=== PATIENT | male | born 1945 | race Caucasian/White ===

== ENCOUNTER → 2018-02-23 | Outpatient (CLI) | payer MEDICARE, BC ==
--- NOTE | 2018-02-23 09:01 | XR ---
EXAMINATION TYPE: XR chest 2V DATE OF EXAM: 02/23/2018 COMPARISON: 02/03/2013 INDICATION: Prostate cancer TECHNIQUE: Frontal and lateral views of the chest are obtained. FINDINGS: The heart size is normal. The pulmonary vasculature is normal. The lungs are clear. Inspiration is more limited in the lateral projection. No suspicious sclerotic lesions are evident. No pulmonary nodules are evident. IMPRESSION: 1. No acute pulmonary process.
--- NOTE | 2018-02-23 12:25 | CT ---
EXAMINATION TYPE: CT abdomen pelvis w con DATE OF EXAM: 02/23/2018 COMPARISON: NONE HISTORY: Recent Diagnosis of Prostate CA CT DLP: 816.5 mGycm, Automated Exposure Control for Dose Reduction was Utilized. CONTRAST: CT scan of the abdomen and pelvis is performed with oral and with IV Contrast, patient injected with 100 mL of Isovue 300. FINDINGS: LUNG BASES: No significant abnormality is appreciated. LIVER/GB: No significant abnormality is appreciated. PANCREAS: No significant abnormality is seen. SPLEEN: Curvilinear calcification superior lateral aspect of spleen are identified. ADRENALS: No significant abnormality is seen. KIDNEYS: There is focal scarring along the posterior aspect of the upper pole right kidney. Inferior to this there is 8mm calcification noted coronal image 58 at area of less prominent scarring. There i s 9 mm simple appearing cyst near this level. There is symmetric cortical medullary uptake and excret ion from both kidneys without evidence of hydronephrosis bilaterally. Asymmetric diminished size to r ight kidney versus opposite left kidney is noted. BOWEL: Oral contrast reaches level of sigmoid colon. There is no suspicious small or large bowel dila tation. There are diverticula in the left and more prominent in the sigmoid colon. There is no CT gustavo dence for acute diverticulitis. PROSTATE/SEMINAL VESICLES: Prostate gland is not suspiciously enlarged. No suspicious adjacent lymph nodes are present. LYMPH NODES: No greater than 1cm abdominal or pelvic lymph nodes are appreciated. OSSEOUS STRUCTURES: There is multilevel mild to moderate spurring in the thoracolumbar spine. There i s facet arthropathy lower lumbar levels. There is moderate axial joint space loss in both hips. OTHER: There is moderate to severe atherosclerotic change of aorta extending into branch vessels. IMPRESSION: 1. No osseous or other metastatic disease. 2. Note is made of asymmetric right-sided renal scarring.
--- NOTE | 2018-02-23 14:10 | NM ---
EXAMINATION TYPE: NM bone scan whole body DATE OF EXAM: 02/23/2018 COMPARISON: NONE HISTORY: Prostate cancer Delayed whole-body scanning was performed following the injection of 25.2 mCi Tc 99m MDP. Images wer e acquired 5 hours post injection. FINDINGS: No suspicious focal hot nodules are evident. No photopenic defects are evident. There is some uptake noted at the left knee and to a minimal degree at the right knee. Uptake is also noted within the bilateral mid feet. These areas are more likely related to degenerative changes. Degenerative changes likely present at the bilateral first metacarpal phalangeal joint spaces of the hands greater on the left. Uptake is also noted at the bilateral shoulders and to a lesser degree the elbows. This appears to be degenerative in nature. Some mild uptake is in the posterior left mid cervical spine mid and lower cervical spine likely rela ronnell to degenerative change IMPRESSION: 1. Scattered areas were suspicious for degenerative changes. 2. Suspicious focal hot nodules to suggest metastasis is not identified.
== END | disposition home or self-care (01) ==
LOC: RADCTMAIN 08:14
PROVIDERS: ATTEND Urology
DX: C61 Malignant neoplasm of prostate (principal)
CPT/HCPCS: 82565; 84520; 71046; 74177; 36415; 78306; A9503; Q9967

== ENCOUNTER → 2018-04-07 | Outpatient (CLI) | payer MEDICARE, BC ==
--- NOTE | 2018-04-07 14:50 | ECHOF ---
Referral Reason:I48.91 atrial fibrillation MEASUREMENTS -------- HEIGHT: 167.6 cm WEIGHT: 78.5 kg BP: 185/88 RVIDd: 3.3 cm (< 3.3) IVSd: 0.9 cm (0.6 - 1.1) LVIDd: 4.2 cm (3.9 - 5.3) LVPWd: 1.0 cm (0.6 - 1.1) IVSs: 1.5 cm LVIDs: 2.3 cm LVPWs: 1.4 cm LAESV Index (A-L): 26.48 ml/m Ao Diam: 3.2 cm (2.0 - 3.7) AV Cusp: 1.4 cm (1.5 - 2.6) LA Diam: 3.8 cm (2.7 - 3.8) EPSS: 0.2 cm MV E Chase: 1.34 m/s MV DecT: 192 ms MV A Chase: 0.01 m/s MV E/A Ratio: 8120 RAP: 5.00 mmHg RVSP: 9.94 mmHg MV EF SLOPE: 69.14 mm/s (70 - 150) MV EXCURSION: 1.24 cm (> 18.000) FINDINGS -------- Atrial fibrillation. This was a technically adequate study. The left ventricular size is normal. Left ventricular wall thickness is normal. Overall left vent ricular systolic function is normal with, an EF between 55 - 60 %. The right ventricle is normal in size and function. Normal LA size by volume 22+/-6 ml/m2. The right atrium is normal in size. Aortic valve is trileaflet and is mildly thickened. There is mild aortic regurgitation. There is no evidence of aortic stenosis. The mitral valve leaflets are mildly thickened. Mild mitral regurgitation is present. Trace tricuspid regurgitation present. Right ventricular systolic pressure is normal at < 35 mmHg. There is no evidence of pulmonary hypertension. Trace/mild (physiologic) pulmonic regurgitation. The aortic root is mildy dilated up to 3.8 cm. Normal inferior vena cava with normal inspiratory collapse consistent with estimated right atrial pre ssure of 5 mmHg. There is no pericardial effusion. CONCLUSIONS -------- 1. Atrial fibrillation. 2. This was a technically adequate study. 3. The left ventricular size is normal. 4. Left ventricular wall thickness is normal. 5. Overall left ventricular systolic function is normal with, an EF between 55 - 60 %. 6. Normal LA size by volume 22+/-6 ml/m2. 7. Aortic valve is trileaflet and is mildly thickened. 8. There is mild aortic regurgitation. 9. The mitral valve leaflets are mildly thickened. 10. Mild mitral regurgitation is present. 11. Trace tricuspid regurgitation present. 12. Right ventricular systolic pressure is normal at < 35 mmHg. 13. There is no evidence of pulmonary hypertension. 14. Trace/mild (physiologic) pulmonic regurgitation. 15. The aortic root is mildy dilated up to 3.8 cm. 16. There is no pericardial effusion. FLOWER GROWER: Ken Shields RDCS
== END | disposition home or self-care (01) ==
LOC: RADECHMAIN 12:43
PROVIDERS: ATTEND Internal Medicine
DX: I48.91 Unspecified atrial fibrillation (principal)
CPT/HCPCS: 93306

== ENCOUNTER → 2019-07-04 | Outpatient (CLI) | payer MEDICARE, BC | LOC: LABWHC1 13:23 | PROVIDERS: ATTEND Urology | DX: C61 Malignant neoplasm of prostate (principal) | CPT/HCPCS: 36415; 84153 ==

== ENCOUNTER 2019-09-19 09:46 | Inpatient (IN) | payer MEDICARE, BC ==
--- NOTE | 2019-09-19 10:10 | ED ---
General Adult HPI - General Chief complaint: Neuro Symptoms/Deficit Stated complaint: double vision/speech concerns Time Seen by Provider: 09/19/19 09:55 Source: patient, family, RN notes reviewed Mode of arrival: ambulatory Limitations: no limitations - History of Present Illness Initial comments: Patient is a pleasant 74-year-old male presenting to the emergency department with dizziness. Onset of symptoms was 6:30 this morning, after he already awoke and was doing fine when he awoke. Patient was doing laundry when he noticed dizziness. Patient defines dizziness as a spinning type sensation. Patient states he also had some double vision. Patient states when he closed one of his eyes that double vision resolved however dizziness remain. Family did notice the patient did have some mild slurred speech, that has resolved. Double vision has also resolved. Patient remains just slightly dizzy at this time. No arm weakness or leg weakness. No loss of sensation. Patient does not feel confused. No history of similar symptoms previously. Patient was seen by Dr. Levi earlier this morning who did sent patient over. He states patient does have history of atrial fibrillation and has, only taken 15 mg of Xarelto not to 20 mg as recommended. - Related Data Allergies Allergy/AdvReac Type Severity Reaction Status Date / Time No Known Allergies Allergy Verified 09/19/19 09:53 Review of Systems ROS Statement: Those systems with pertinent positive or pertinent negative responses have been documented in the HPI. ROS Other: All systems not noted in ROS Statement are negative. Constitutional: Denies: fever Eyes: Reports: as per HPI ENT: Denies: ear pain Respiratory: Denies: cough Cardiovascular: Denies: chest pain Endocrine: Denies: fatigue Gastrointestinal: Denies: abdominal pain Genitourinary: Denies: dysuria Musculoskeletal: Denies: back pain Skin: Denies: rash Neurological: Reports: headache (Minimal right-sided headache), vertigo. Denies: weakness, confusion Past Medical History Past Medical History: Atrial Fibrillation, Cancer History of Any Multi-Drug Resistant Organisms: None Reported Past Surgical History: Prostate Surgery Additional Past Surgical History / Comment(s): prostate Past Psychological History: No Psychological Hx Reported Smoking Status: Never smoker Past Alcohol Use History: Occasional Past Drug Use History: None Reported General Exam Limitations: no limitations General appearance: alert, in no apparent distress Head exam: Present: normocephalic Eye exam: Present: normal appearance, PERRL, EOMI. Absent: nystagmus ENT exam: Present: normal oropharynx Neck exam: Present: normal inspection Respiratory exam: Present: normal lung sounds bilaterally Cardiovascular Exam: Present: regular rate, irregular rhythm GI/Abdominal exam: Present: soft. Absent: tenderness Extremities exam: Present: normal inspection, full ROM Neurological exam: Present: alert, oriented X3, CN II-XII intact. Absent: motor sensory deficit Expanded Neurological exam: Present: protecting the airway Patient oriented to: Present: person, place, time Speech: Present: fluid speech Cranial nerves: EOM's Intact: Normal, Facial Sensation: Normal Cerebellar function: Finger to Nose: Normal, Romberg: Normal Sensory exam: Upper Extremity Light Touch: Normal, Lower Extremity Light Touch: Normal Motor strength exam: RUE: 5, LUE: 5, RLE: 5, LLE: 5 Eye Response: (4) open spontaneously Motor Response: (6) obeys commands Verbal Response: (5) oriented Psychiatric exam: Present: normal affect, normal mood Skin exam: Present: normal color Course Vital Signs 09/19/19 09:49 Temperature 97.9 F Pulse Rate 60 Respiratory 19 Rate Blood Pressure 158/95 O2 Sat by Pulse 100 Oximetry - Reevaluation(s) Reevaluation #1: 09/19/19 10:35 Case was earlier discussed with neural interventional list, Dr. mak who agrees patient is not a TPA candidate and will review films. EKG Findings - EKG Comments: EKG Findings:: A. fib with rate of 62. QRS 94. QT 434. QTC 440. Left axis. LVH criteria. No acute ST change. Medical Decision Making - Medical Decision Making Patient reevaluated and updated. [facility] physician group has been paged for admission covering for Dr. Levi. - Lab Data Result diagrams: 09/19/19 10:11 09/19/19 10:11 Lab Results 09/19/19 09/19/19 09/19/19 Range/Units 10:10 10:11 10:11 WBC 4.8 (3.8-10.6) k/uL RBC 4.52 (4.30-5.90) m/uL Hgb 14.2 (13.0-17.5) gm/dL Hct 42.1 (39.0-53.0) % MCV 93.1 (80.0-100.0) fL MCH 31.5 (25.0-35.0) pg MCHC 33.8 (31.0-37.0) g/dL RDW 12.8 (11.5-15.5) % Plt Count 326 (150-450) k/uL Neutrophils % 76 % Lymphocytes % 11 % Monocytes % 6 % Eosinophils % 2 % Basophils % 1 % Neutrophils # 3.7 (1.3-7.7) k/uL Lymphocytes # 0.5 L (1.0-4.8) k/uL Monocytes # 0.3 (0-1.0) k/uL Eosinophils # 0.1 (0-0.7) k/uL Basophils # 0.1 (0-0.2) k/uL PT (9.0-12.0) sec INR (<1.2) APTT (22.0-30.0) sec Sodium 138 (137-145) mmol/L Potassium 4.5 (3.5-5.1) mmol/L Chloride 102 (98-107) mmol/L Carbon Dioxide 27 (22-30) mmol/L Anion Gap 9 mmol/L BUN 24 H (9-20) mg/dL Creatinine 1.06 (0.66-1.25) mg/dL Est GFR (CKD-EPI)AfAm 81 (>60 ml/min/1.73 sqM) Est GFR (CKD-EPI)NonAf 70 (>60 ml/min/1.73 sqM) Glucose 106 H (74-99) mg/dL POC Glucose (mg/dL) 102 H (75-99) mg/dL POC Glu Water Quality Control Engineer ID LassiterMauryTrisha Calcium 9.9 (8.4-10.2) mg/dL Total Bilirubin 0.6 (0.2-1.3) mg/dL AST 52 (17-59) U/L ALT 74 H (21-72) U/L Alkaline Phosphatase 99 (38-126) U/L Troponin I (0.000-0.034) ng/mL Total Protein 8.7 H (6.3-8.2) g/dL Albumin 4.7 (3.5-5.0) g/dL 09/19/19 09/19/19 Range/Units 10:11 10:11 WBC (3.8-10.6) k/uL RBC (4.30-5.90) m/uL Hgb (13.0-17.5) gm/dL Hct (39.0-53.0) % MCV (80.0-100.0) fL MCH (25.0-35.0) pg MCHC (31.0-37.0) g/dL RDW (11.5-15.5) % Plt Count (150-450) k/uL Neutrophils % % Lymphocytes % % Monocytes % % Eosinophils % % Basophils % % Neutrophils # (1.3-7.7) k/uL Lymphocytes # (1.0-4.8) k/uL Monocytes # (0-1.0) k/uL Eosinophils # (0-0.7) k/uL Basophils # (0-0.2) k/uL PT 11.7 (9.0-12.0) sec INR 1.1 (<1.2) APTT 36.9 H (22.0-30.0) sec Sodium (137-145) mmol/L Potassium (3.5-5.1) mmol/L Chloride (98-107) mmol/L Carbon Dioxide (22-30) mmol/L Anion Gap mmol/L BUN (9-20) mg/dL Creatinine (0.66-1.25) mg/dL Est GFR (CKD-EPI)AfAm (>60 ml/min/1.73 sqM) Est GFR (CKD-EPI)NonAf (>60 ml/min/1.73 sqM) Glucose (74-99) mg/dL POC Glucose (mg/dL) (75-99) mg/dL POC Glu Water Quality Control Engineer ID Calcium (8.4-10.2) mg/dL Total Bilirubin (0.2-1.3) mg/dL AST (17-59) U/L ALT (21-72) U/L Alkaline Phosphatase (38-126) U/L Troponin I <0.012 (0.000-0.034) ng/mL Total Protein (6.3-8.2) g/dL Albumin (3.5-5.0) g/dL - Radiology Data Radiology results: report reviewed (ET scan of the brain reveals atrophy and chronic changes, no acute process. CTA does not reveal acute abnormality.), image reviewed (Chest x-ray shows diminished inspiration that may be exaggerating mild cardiomegaly. No acute process.) Disposition Clinical Impression: Cerebrovascular accident (CVA) Disposition: ADMITTED IP TO THIS [facility] Condition: Serious Is patient prescribed a controlled substance at d/c from ED?: No Referrals: Tushar Levi MD [Primary Care Provider] - 1-2 days Decision Time: 11:15
[2019-09-19 10:12] LABS: Glucose,Whole Blood 102 mg/dL (75-99)
--- NOTE | 2019-09-19 10:29 | CT ---
EXAMINATION TYPE: CT brain wo con for TPA DATE OF EXAM: 09/19/2019 HISTORY: Dizziness, blurred vision. Acute onset neurologic deficit. CT DLP: 1036.8 mGycm. Automated Exposure Control for Dose Reduction was Utilized. TECHNIQUE: CT scan of the head is performed without contrast. COMPARISON: None. FINDINGS: There is no acute intracranial hemorrhage or midline shift identified. There is diffuse v entricular and sulcal prominence consistent with diffuse age-related cerebral atrophy. There is low- attenuation in the periventricular white matter consistent with chronic small vessel ischemic change. There is partial visualization of mucous retention cyst or polyp in the inferior left maxillary sinu s otherwise paranasal sinuses are clear. Globes are intact bilaterally. IMPRESSION: No acute intracranial hemorrhage or midline shift. There is mild to moderate diffuse ag e-related cerebral atrophy and mild chronic small vessel ischemic change noted.
[2019-09-19 10:35] LABS: Basophils # (A) 0.1 k/uL (0-0.2); Basophils % (A) 1 %; Eosinophils # (A) 0.1 k/uL (0-0.7); Eosinophils % (A) 2 %; HCT 42.1 % (39.0-53.0); HGB 14.2 gm/dL (13.0-17.5); Lymphocytes # (A) 0.5 k/uL (1.0-4.8); Lymphocytes % (A) 11 %; MCH 31.5 pg (25.0-35.0); MCHC 33.8 g/dL (31.0-37.0); MCV 93.1 fL (80.0-100.0); Monocytes # (A) 0.3 k/uL (0-1.0); Monocytes % (A) 6 %; Neutrophils # (A) 3.7 k/uL (1.3-7.7); Neutrophils % (A) 76 %; Platelet Count 326 k/uL (150-450); RBC 4.52 m/uL (4.30-5.90); RDW 12.8 % (11.5-15.5); WBC 4.8 k/uL (3.8-10.6)
[2019-09-19 10:44] LABS: Albumin 4.7 g/dL (3.5-5.0); Calcium 9.9 mg/dL (8.4-10.2); Potassium 4.5 mmol/L (3.5-5.1); Total Bilirubin 0.6 mg/dL (0.2-1.3); Total Protein 8.7 g/dL (6.3-8.2)
[2019-09-19] MEDS: SODIUM CHLORIDE 0.9% 1,000 ML IV STA ×3 (10:51→14:24)
[2019-09-19 10:54] LABS: INR 1.1 (<1.2); Partial Thromboplastin Time 36.9 sec (22.0-30.0); Prothrombin Time 11.7 sec (9.0-12.0)
--- NOTE | 2019-09-19 10:57 | XR ---
EXAMINATION TYPE: XR chest 2V DATE OF EXAM: 09/19/2019 COMPARISON: Chest x-ray February 23, 2018. HISTORY: Dizziness and weakness. TECHNIQUE: Frontal and lateral views of the chest are obtained. FINDINGS: There is old posterior right third rib fracture redemonstrated. Diminished inspiration on current study. Cardiac silhouette size is now mildly enlarged without cirrhotic and ectatic thoracic aorta. Multilevel spurring in the spine seen best on lateral view. Lungs are clear without pleural ef fusion or pneumothorax noted. IMPRESSION: Diminished inspiration may be exaggerating mild cardiomegaly. No new acute pulmonary pro cess is evident.
--- NOTE | 2019-09-19 11:00 | CT ---
EXAMINATION TYPE: CT angio head neck DATE OF EXAM: 09/19/2019 HISTORY: Neurologic deficits. COMPARISON: 09/19/19 CT DLP: 432.8 mGycm. Automated Exposure Control for Dose Reduction was Utilized. TECHNIQUE: CTA scan of the neck is performed with IV Contrast, patient injected with 65 mL of Isovue 370, axial images are obtained, coronal and sagittal reformatted images are reviewed. Three-D recons tructed images are created on an independent workstation and reviewed. FINDINGS: There is a conventional three-vessel branch pattern of the aortic arch. There is mild nonhemodynamically significant calcific and noncalcific atheromatous plaquing of the pr oximal external carotid artery and proximal left internal carotid artery beginning at the carotid bul b. This is less than 50% change in luminal diameter. The bilateral common carotid arteries, carotid b ulbs, and cervical portions of the internal carotid arteries are patent. The vertebral arteries have a normal anatomic origin and are patent bilaterally. The vertebral arteri es are codominant. Basilar artery is intact and unremarkable. Posterior and anterior circulation appear intact although posterior commuting arteries are not defini tely visualized. There is some slight narrowing of the cavernous portions of the bilateral internal c arotid arteries and supraclinoid portions likely on the basis of atheromatous change. No focal occlus ion or aneurysmal outpouching is seen. No dissection is seen. Visualized portions of the brain are discussed on the CT brain of the same date. 1.9 cm left maxillar y probable mucosal retention cyst is seen. Osseous structures are intact with degenerative change. IMPRESSION: 1. No large vessel focal occlusion, hemodynamically significant stenosis, aneurysmal outpouching or d issection is seen. 2. Given the neurologic deficits MRI could be performed for more accurate assessment of acute infarct .
[2019-09-19] MEDS ORDERED: ASPIRIN 325 MG TAB PO STA (11:19)
[2019-09-19] MEDS: SODIUM CHLORIDE 0.9% 1,000 ML IV SCH ×2 (14:39→20:09)
[2019-09-19] MEDS ORDERED: NALOXONE 0.4 MG/ML 1 ML VIAL IV PRN (16:44)
[2019-09-19] MEDS ORDERED: MELATONIN 3 MG TABLET PO PRN (16:44)
[2019-09-19] MEDS ORDERED: LABETALOL 5 MG/ML VIAL MDV IVP PRN (17:11)
--- NOTE | 2019-09-19 17:12 | P.CNNES ---
History of Present Illness Consult date: 09/19/19 Reason for Consult: Concern for stroke Chief complaint: Double vision and room-spinning sensation History of Present Illness: HISTORY OF PRESENT ILLNESS: Thank you for allowing me to evaluate Mr. Bruno Cardona. Mr. Cardona is a 74 year-old man with PMHx of atrial fibrillation, prostate cancer, and HTN, who presents to [facility] for an episode of double vision along with a room spinning sensation. Patient states that he woke around 5 in the morning, he got up and he made his coffee, and he turned on his dryer as he wanted to wear warm clothes. He tried to get clothes out from the dryer he started and he started having double vision along with a moving sensation. He continued to however, he was concerned that there may be a stroke. He called his son to let him know that he was unhappy taking a shower, and his the patient doesn't call him back in the next 20-30 minutes, son should calm to her he lives to make sure everything was okay. Patient was able to take a shower, and he cannot feeling a little bit better, but he was still having some symptoms, so he is son came over to bring him to the hospital. Patient denies ever having similar symptoms. He recently had a pretty bad cold, and he still coming down from it. He endorses ringing in his ears, but it's been an ongoing process for a long time. No pain in the ear. No headache, weakness, numbness or tingling, dysphagia, dysarthria, aphasia. Patient states that his vision is sometimes a little bit. After getting his hormone replacement therapy for his prostate cancer, but this followed up with difference. Diagnosis of atrial fibrillation happened during cardiac workup before his recent prostate surgery. PAST MEDICAL HISTORY: atrial fibrillation, prostate cancer PAST SURGICAL HISTORY: Prostate surgery HOME MEDICATIONS: Xarelto, Benazepril-HCTZ ALLERGIES: NKDA SOCIAL HISTORY: Never smoker. Social drinker. REVIEW OF SYSTEMS: The 14 systems are reviewed and no additional points are identified compared to the review of systems documented history and physical PHYSICAL EXAMINATION: VITAL SIGNS: T 97.4 HR 61 RR 20 BP 162/82 O2 sat 98% on RA GEN.: NAD, pleasant and cooperative HEENT: NCAT, sclera without icterus NECK: Supple, no carotid bruit SKIN AND EXTREMITIES: Warm to touch, no edema NEURO: MENTAL STATUS: Patient alert and oriented to self, place, time. Able to name the current president. Speech fluent, able to name and repeat, following all commands readily. No right and left disorientation, extinction to double simultaneous stimulation, finger agnosia, neglect. CRANIAL NERVES II THROUGH XII: II: Pupils are equal and reactive to light symmetrically. No afferent pupillary defect. Visual humphries are intact. III, IV, : No ptosis. Extraocular movements full. No nystagmus. V: Facial sensation intact from V1-3. VII. No clear facial asymmetry. VIII: Hearing intact to finger rub bilaterally. IX, X: Symmetric palate elevation. XI: Shoulder shrug intact. XII: Tongue midline without fasciculation or atrophy. MOTOR: Normal bulk/tone. No pronator drift or tremor. Strength is 5/5 throughout all 4 extremities. SENSORY: Intact to light touch, temperature, pinprick in all 4 extremities. Romberg is negative. REFLEXES: 2+ throughout. Toes are downgoing. COORDINATION: Finger to nose intact. No dysmetria. GAIT: Narrow-based and stable. Able to toe/heel walk. Some difficulty with tandem walking DIAGNOSTIC TESTING: LABORATORY: WBC 4.8 hemoglobin 14.2 platelets 326 PT 11.7 INR 1.1 sodium 138 potassium 4.5 chloride 102 bicarb 27 BUN 2421.06 glucose 106 AST 52 ALT 74 alk phos 99 tropo laura <0.012 IMAGING: CT head without contrast 09/19/2019: No acute intracranial hemorrhage or midline shift. There is mild to moderate diffuse age-related cerebral atrophy and mild chronic small vessel ischemic change noted. CTA head and neck with contrast 09/19/2019: No large vessel focal occlusion, hemodynamically significant stenosis, aneurysmal outpouchings or dissection seen. There is mild nonhemodynamically significant calcific and calcific atheromatous plaquing of the proximal external carotid artery and proximal left ica beginning at the carotid bulb. this is less than 50% change in luminal diameter. ASSESSMENT: 74 year-old man with PMHx of atrial fibrillation, prostate cancer, and HTN, who presents to [facility] for an episode of double vision along with a room spinning sensation. There is a concern for posterior circulation stroke this patient also with history of atrial fibrillation and prostate cancer: Patient has been on anticoagulation. RECOMMENDATIONS: 1. MRI brain without contrast 2. Transthoracic echocardiogram obtained. Awaiting final result 3. Cardiac monitoring 4. Permissive HTN for 24-48 hours SBP >220. Give labetalol 10mg IV q1h PRN for SBP >220 DBP >110 5. Continue with Xarelto 6. Atorvastatin 80mg qhs 7. Labs: A1C, TSH, FLP 8. Discussed with patient about stroke prevention guidelines. Medication compliance, hypertension/diabetes control, lifestyle changes including no smoking, drinking in moderation, losing weight, exercising, eating healthier 9. Neurology will continue to follow 10. Patient needs to follow up with neurologist as outpatient with her 1-2 weeks of discharge Past Medical History Past Medical History: Atrial Fibrillation, Cancer, Eye Disorder, Hypertension, Osteoarthritis (OA) Additional Past Medical History / Comment(s): Prostate cancer with surgery/radiation/immunotherapy, pt believes he has incomplete emptying of his bladder, chronic low back pain, arthritis multiple joints, diverticular disease, closed angle glaucoma bilaterally, seasonal allergies, recent "cold". 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 Past Anesthesia/Blood Transfusion Reactions: Postoperative Nausea & Vomiting (PONV) Smoking Status: Former smoker - Past Family History Father Family Medical History: Hypertension, Liver Disease Additional Family Medical History / Comment(s): Father had heart "issues" Mother Family Medical History: Congestive Heart Failure (CHF), Diabetes Mellitus, Hypertension Additional Family Medical History / Comment(s): Enlarged heart. Medications and Allergies Home Medications Medication Instructions Recorded Confirmed Type Benazepril/Hydrochlorothiazide 1 tab PO DAILY@0700 09/19/19 09/19/19 History [Benazepril-Hctz 20-12.5 mg Tab] Rivaroxaban [Xarelto] 15 mg PO DAILY@0700 09/19/19 09/19/19 History Allergies Allergy/AdvReac Type Severity Reaction Status Date / Time No Known Allergies Allergy Verified 09/19/19 12:11 Physical Examination - Vital Signs Vital Signs: Vital Signs Temp Pulse Pulse Resp BP BP Pulse Ox 09/19/19 13:20 97.4 F L 61 20 162/82 98 09/19/19 12:30 56 L 22 154/84 99 11/05/19 12:00 64 17 134/84 99 09/19/19 11:30 65 19 143/83 09/19/19 10:30 64 24 143/78 98 09/19/19 09:49 97.9 F 60 19 158/95 100 Intake and Output 09/19/19 09/19/19 09/19/19 06:59 14:59 22:59 Other: Weight 83.007 kg Results - Laboratory Findings CBC and BMP: 09/19/19 10:11 09/19/19 10:11 Abnormal Lab Findings: Abnormal Labs 09/19/19 09/19/19 09/19/19 10:10 10:11 10:11 Lymphocytes # 0.5 L APTT BUN 24 H Glucose 106 H POC Glucose (mg/dL) 102 H ALT 74 H Total Protein 8.7 H 09/19/19 10:11 Lymphocytes # APTT 36.9 H BUN Glucose POC Glucose (mg/dL) ALT Total Protein
--- NOTE | 2019-09-19 17:15 | P.HPIM ---
History of Present Illness H&P Date: 09/19/19 Chief Complaint: Double/blurred vision and slurred speech since this AM. This 74-year-old male with past medical history significant for atrial fibrillation on Xeralto (sub-therapeutic dose per patient's choice), hypertension, prostate cancer on hormonal treatment and chronic blurred vision who resented to the emergency department this morning with the above complaint. Patient reported by the time he came to the emergency room his diplopia has resolved and his slurred his speech was also almost gone. Patient stated that he has not seen the lockstitch waistband setter for 4 years and is not wearing his glasses. Patient reports that his double vision comes and goes and it comes it lasts for 5-10 minutes and then it resolves. Patient covers one eye and his double vision resolves. Patient was slightly dizzy with feeling of room spinning earlier in the morning but that has also been resolved by the time he arrived in the emergency department. With these complaints patient went to see Dr. Levi, his PCP, who again recommended to use full therapeutic dose of Xeralto and new prescription was sent to his pharmacy but because of the symptoms patient was sent directly to the emergency room for further evaluation and management. Patient has extensive evaluation in the emergency department and CAT scan of the head revealed atrophy and chronic changes, no acute process. CT angiogram does not reveal acute abnormality. Chest x-ray was done which showed diminished inspirations and possible mild cardiomegaly, no acute process. Code stroke was initiated in the emergency room and per neurology recommendation patient was admitted for further management. Patient denies chest pain, palpitation, headaches, dizziness now, diaphoresis, fever, chills, cough, phlegm production, and nausea, vomiting and denies rest of the review system. Review of Systems 12 point review of system was essentially negative other than one mentioned in HPI. Past Medical History Past Medical History: Atrial Fibrillation, Cancer, Eye Disorder, Hypertension, Osteoarthritis (OA) Additional Past Medical History / Comment(s): Prostate cancer with surgery/radiation/immunotherapy, pt believes he has incomplete emptying of his bladder, chronic low back pain, arthritis multiple joints, diverticular disease, closed angle glaucoma bilaterally, seasonal allergies, recent "cold". 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 Past Anesthesia/Blood Transfusion Reactions: Postoperative Nausea & Vomiting (PONV) Smoking Status: Former smoker - Past Family History Father Family Medical History: Hypertension, Liver Disease Additional Family Medical History / Comment(s): Father had heart "issues" Mother Family Medical History: Congestive Heart Failure (CHF), Diabetes Mellitus, Hypertension Additional Family Medical History / Comment(s): Enlarged heart. Medications and Allergies Home Medications Medication Instructions Recorded Confirmed Type Benazepril/Hydrochlorothiazide 1 tab PO DAILY@0700 09/19/19 09/19/19 History [Benazepril-Hctz 20-12.5 mg Tab] Rivaroxaban [Xarelto] 15 mg PO DAILY@0700 09/19/19 09/19/19 History Allergies Allergy/AdvReac Type Severity Reaction Status Date / Time No Known Allergies Allergy Verified 09/19/19 12:11 Physical Exam Vitals: Vital Signs Temp Pulse Pulse Resp BP BP Pulse Ox 09/19/19 13:20 97.4 F L 61 20 162/82 98 09/19/19 12:30 56 L 22 154/84 99 09/19/19 12:00 64 17 134/84 99 09/19/19 11:30 65 19 143/83 09/19/19 10:30 64 24 143/78 98 09/19/19 09:49 97.9 F 60 19 158/95 100 Intake and Output 09/19/19 09/19/19 09/19/19 06:59 14:59 22:59 Other: Weight 83.007 kg - Constitutional General appearance: cooperative, no acute distress - EENT Eyes: EOMI, normal appearance ENT: hearing grossly normal, NA/AT - Neck Neck: no lymphadenopathy, normal ROM, no rigidity, no stridor, no thyromegaly - Respiratory Respiratory: bilateral: CTA, negative: dullness, rales, rhonchi, wheezing - Cardiovascular Rhythm: irregularly irregular Heart sounds: abnormal: S1 (Variable.), S2 (Variable.) Abnormal Heart Sounds: no systolic murmur, no diastolic murmur, no S3 Gallop, no S4 Gallop - Gastrointestinal General gastrointestinal: no distended, normal bowel sounds, no rigid, soft, no tenderness - Integumentary Integumentary: normal - Neurologic Neurologic: CNII-XII intact (No focal neuro deficits noted.) - Psychiatric Psychiatric: A&O x's 3, appropriate affect, intact judgment & insight Results CBC & Chem 7: 09/19/19 10:11 09/19/19 10:11 Labs: Abnormal Lab Results - Last 24 Hours (Table) 09/19/19 09/19/19 09/19/19 Range/Units 10:10 10:11 10:11 Lymphocytes # 0.5 L (1.0-4.8) k/uL APTT (22.0-30.0) sec BUN 24 H (9-20) mg/dL Glucose 106 H (74-99) mg/dL POC Glucose (mg/dL) 102 H (75-99) mg/dL ALT 74 H (21-72) U/L Total Protein 8.7 H (6.3-8.2) g/dL 09/19/19 Range/Units 10:11 Lymphocytes # (1.0-4.8) k/uL APTT 36.9 H (22.0-30.0) sec BUN (9-20) mg/dL Glucose (74-99) mg/dL POC Glucose (mg/dL) (75-99) mg/dL ALT (21-72) U/L Total Protein (6.3-8.2) g/dL Chest x-ray: report reviewed CT Scan - head: report reviewed Thrombosis Risk Factor Assmnt - DVT/VTE Prophylaxis DVT/VTE Prophylaxis: Contraindicated - See note (Patient on appropriate oral anticoagulation for atrial fibrillation.) - Choose All That Apply Any of the Below Risk Factors Present?: Yes Each Factor Represents 1 point: Obesity (BMI >25) Other Risk Factors: Yes Each Risk Factor Represents 2 Points: Age 61-74 years, Malignancy Other congenital or acquired thrombophilia - If yes, enter type in comment: No Thrombosis Risk Factor Assessment Total Risk Factor Score: 5 Thrombosis Risk Factor Assessment Level: High Risk Assessment and Plan (1) TIA (transient ischemic attack) Current Visit: Yes Status: Acute Priority: High Code(s): G45.9 - TRANSIENT CEREBRAL ISCHEMIC ATTACK, UNSPECIFIED SNOMED Code(s): 684431152 (2) Binocular vision disorder with diplopia Current Visit: Yes Status: Acute Priority: High Code(s): H53.2 - DIPLOPIA SNOMED Code(s): 58790408 (3) Blurred vision, bilateral Current Visit: Yes Status: Acute Priority: High Code(s): H53.8 - OTHER VISUAL DISTURBANCES SNOMED Code(s): 545540345 (4) Hypertension, essential, benign Current Visit: Yes Status: Chronic Priority: High Code(s): I10 - ESSENTIAL (PRIMARY) HYPERTENSION SNOMED Code(s): 5991769 (5) Atrial fibrillation Current Visit: Yes Status: Chronic Priority: Medium Code(s): I48.91 - UNSPECIFIED ATRIAL FIBRILLATION SNOMED Code(s): 98093145 (6) Prostate cancer Current Visit: Yes Status: Chronic Priority: Medium Code(s): C61 - MALIGNANT NEOPLASM OF PROSTATE SNOMED Code(s): 050821058 Plan: Patient was admitted to telemetry unit, neurology consult was obtained and Dr. Patricia's input appreciated. Patient was counseled regarding increasing the dose of Xeralto to 20MG daily and it took a lot of time to educate him about the pros of this medication which further outweighs the side effects. Patient finally agreed to take 20 mg from tomorrow morning. Patient's dizziness and slurred speech completely resolved but his double vision comes and goes but it comes is last 457 minutes maybe 10 minutes at most and then it resolves. Patient also stated that he has not seen lockstitch waistband setter for about 4 years and does not have glasses and his vision is very poor and blurry. Patient also reported that he does not sleep well because of his prostate issues and at times he is sleepy during the daytime and takes naps. Patient lives alone in his apartment. MRI will be done according to the recommendation of Dr. Patricia. Patient will be referred to ophthalmology evaluation and Dr. Tolliver was consulted for his double vision. This could be due to his lack of sleep during the nighttime and he is sleepy and weak tired during the daytime causing him to have intermittent double vision but will have him evaluated by ophthalmology either inpatient or as an outpatient so that patient can start getting his ophthalmologic care. Patient home medication were reviewed and will will be continued with the adjustment of Xeralto dose. Patient was requesting to be discharged and had MRI done on as an outpatient basis and Dr. Patricia recommended for discharging patient today, but b ecause of his recurrent and reoccurring double vision and blurred vision it was counseled to stay in the hospital and have an MRI done as an inpatient and that he may be evaluated by the lockstitch waistband setter while inpatient and patient agreed to stay. Total time spent was more than 45 minutes and more than 50% of which was in counseling the patient regarding appropriate medication management of his me dical condition and evaluation and management of his acute condition as an inpatient status. Time with Patient: Greater than 30 (Total time spent was 45 minutes, counseled/educated to comply with physicians recommendation.)
[2019-09-19] MEDS: ATORVASTATIN 80 MG TAB PO SCH (21:58)
[2019-09-20] MEDS: SODIUM CHLORIDE 0.9% 1,000 ML IV SCH (06:47)
[2019-09-20] MEDS ORDERED: HYDROCHLOROTHIAZIDE 12.5 MG CAP PO SCH (07:00)
[2019-09-20] MEDS ORDERED: LISINOPRIL 20 MG TAB PO SCH (07:00)
[2019-09-20] MEDS ORDERED: RIVAROXABAN 15 MG TAB PO SCH (07:00)
[2019-09-20 07:39] LABS: Calcium 9.7 mg/dL (8.4-10.2); Potassium 4.6 mmol/L (3.5-5.1)
[2019-09-20] MEDS ORDERED: ASPIRIN 325 MG TAB PO SCH (09:00)
--- NOTE | 2019-09-20 11:41 | CONS ---
CONSULTATION CHIEF COMPLAINT: Double vision and vertigo. This is a 74-year-old gentleman with history of chronic persistent atrial fibrillation, who presented to the hospital with symptoms of double vision and spinning in the room. He got up in the morning and started using his washer and dryer and started noticing the double vision and the spinning sensation in the room.. This went on for a while, went and saw his primary care physician in the office. Due to persistent symptoms, he is admitted to the hospital. I have been consulted because of his persistent atrial fibrillation. The patient was on Xarelto 15 mg daily and I advised the patient to increase the dose to 20 mg for optimal therapy. Patient denies chest pain, difficulty in breathing, sustained palpitations or syncope. PAST SURGICAL HISTORY: Significant for prostate surgery. Significant for atrial fibrillation, medication and hypertension. MEDICATIONS: Include Xarelto and benazepril. ALLERGIES: No known drug allergies. FAMILY HISTORY: Negative for premature coronary artery disease. SOCIAL HISTORY: Negative for smoking, EtOH abuse, or drug abuse. REVIEW OF SYSTEMS: HEENT: As described above. CARDIAC: Negative. RESPIRATORY: Negative. GI: Negative. : Negative. SKIN: Negative. MUSCULOSKELETAL: Significant for arthritis. PSYCHOSOCIAL: Negative. ENDOCRINE: Negatlive. DERM: Negative. CONSTITUTIONAL: Negative. ONCOLOGICAL: Negative ADVANCED MANUFACTURING ENGINEER: As described above. Rest of the system review is not relevant. PHYSICAL EXAM: Patient is afebrile. Heart rate is 50 beats per minute. Blood pressure is 120/60, respiratory rate is 18%, O2 sat is 97% on room air. There is no jugular venous distention. Carotid upstroke is diminished. There is no bruit. Chest exam reveals good air entry bilaterally. Heart exam reveals first and second heart sounds. No gallop. No murmur. No rub. Abdomen is soft. No gallop. Has irregular rhythm. No murmur. Abdomen is soft, nontender. Exam of extremities did not reveal any edema. 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 LAB: 1. Show potassium of 4.6 creatinine is 1.1. LDL cholesterol is 199 with a TSH of 2.2. Total cholesterol is 280, AST is 52, ALT is 74. Hemoglobin is 14.2. ASSESSMENT: 1. Persistent atrial fibrillation with controlled ventricular rate. 2. Double vision and vertigo. 3. Rule out CVA in the posterior circulation. 4. Dyslipidemia. PLAN: I will obtain a 2D echo on him to evaluate his LV function. Increase the dose of Xarelto to 20 mg daily. Continue with optimal blood pressure control. Patient needs to be started on statins given the is severely elevated LDL cholesterol. Thank you for giving me the privilege to participate with this pleasant gentleman. BRANDI / ANELN: [id number] /
--- NOTE | 2019-09-20 13:31 | ECHOF ---
Referral Reason:Thrombus MEASUREMENTS -------- HEIGHT: 167.6 cm WEIGHT: 83.0 kg BP: 158/95 RVIDd: 4.2 cm (< 3.3) IVSd: 1.3 cm (0.6 - 1.1) LVIDd: 4.3 cm (3.9 - 5.3) LVPWd: 1.2 cm (0.6 - 1.1) IVSs: 2.2 cm LVIDs: 1.5 cm LVPWs: 1.8 cm LAESV Index (A-L): 43.23 ml/m Ao Diam: 2.7 cm (2.0 - 3.7) AV Cusp: 2.0 cm (1.5 - 2.6) LA Diam: 4.6 cm (2.7 - 3.8) MV EXCURSION: 14.414 mm (> 18.000) MV EF SLOPE: 56 mm/s (70 - 150) EPSS: 0.2 cm AR PHT: 334 ms RAP: 5.00 mmHg RVSP: 24.55 mmHg FINDINGS -------- Atrial fibrillation. This was a technically adequate study. The left ventricular size is normal. There is mild concentric left ventricular hypertrophy. Overa ll left ventricular systolic function is normal with, an EF between 55 - 60 %. Left ventricular [place] pressure cannot be estimated due to Atrial fibrillation. The right ventricle is severely enlarged. LA is severely dilated >40 ml/m2 The right atrium is mildly enlarged. Interatrial and interventricular septum intact. The aortic valve is trileaflet and appears structurally normal. There is mild aortic valve sclerosi s. Trace to mild aortic regurgitation. Mild mitral annular calcification present. [id number] mitral regurgitation is present. Mild tricuspid regurgitation present. There is no evidence of pulmonary hypertension. The right v entricular systolic pressure, as measured by Doppler, is 24.55mmHg. Trace/mild (physiologic) pulmonic regurgitation. The aortic root size is normal. Normal inferior vena cava with normal inspiratory collapse consistent with estimated right atrial pre ssure of 5 mmHg. There is no pericardial effusion. CONCLUSIONS -------- 1. Atrial fibrillation. 2. This was a technically adequate study. 3. The left ventricular size is normal. 4. There is mild concentric left ventricular hypertrophy. 5. Overall left ventricular systolic function is normal with, an EF between 55 - 60 %. 6. Left ventricular fillimg pressure cannot be estimated due to Atrial fibrillation. 7. The right ventricle is severely enlarged. 8. LA is severely dilated >40 ml/m2 9. The right atrium is mildly enlarged. 10. Interatrial and interventricular septum intact. 11. The aortic valve is trileaflet and appears structurally normal. 12. There is mild aortic valve sclerosis. 13. Trace to mild aortic regurgitation. 14. Mild mitral annular calcification present. 15. [id number] mitral regurgitation is present. 16. Mild tricuspid regurgitation present. 17. There is no evidence of pulmonary hypertension. 18. The right ventricular systolic pressure, as measured by Doppler, is 24.55mmHg. 19. Trace/mild (physiologic) pulmonic regurgitation. 20. The aortic root size is normal. 21. Normal inferior vena cava with normal inspiratory collapse consistent with estimated right atrial pressure of 5 mmHg. 22. There is no pericardial effusion. ELECTRONIC COMMUNICATIONS TECHNICIAN: Maya Thompson RDCS
--- NOTE | 2019-09-20 14:04 | MR ---
EXAMINATION TYPE: MR brain wo con DATE OF EXAM: 09/20/2019 1:55 PM COMPARISON: NONE HISTORY: CVA FINDINGS: The ventricles, basal cisterns and sulci overlying the cerebral convexities are mildly enlarged. There is evidence of mild periventricular white matter ischemic demyelination. Remote deep white matter insults are also noted. Small focus of increased signal on the diffusion-weighted data sets within the right brachium pontis and periphery of the right cerebellum felt to reflect acute vascular insult. There is no evidence for midline shift or mass effect. Acute intracranial hemorrhage or extra-axial collection is not evident. The paranasal sinuses and mastoid air cells are well-aerated. IMPRESSION: Small focus of increased signal on the diffusion-weighted data sets within the right brachium pontis and periphery of the right cerebellum felt to reflect acute vascular insult.
[2019-09-20 14:06] LABS: Hemoglobin A1C 5.6 % (4.0-6.0)
[2019-09-20 15:37] VITALS: TEMP 97.7
[2019-09-20 15:39] VITALS: PULSE 60
[2019-09-20 17:39] VITALS: BP 121/81
[2019-09-20 18:12] VITALS: RESP 15
--- NOTE | 2019-09-20 18:25 | P.DS ---
Providers Date of admission: 09/19/19 11:19 Expected date of discharge: 09/20/19 Attending physician: Maggy Clemons, Consults: 09/19/19 11:19 Consult Physician Urgent Consulting Provider: Love Patricia Consult Reason/Comments: evaluate for cva Do you want consulting provider notified?: Yes 09/19/19 16:48 Consult Physician Routine Consulting Provider: Miguel Tolliver Consult Reason/Comments: Diplopia (intermittant) and blurred vision, not seen ophthal. for 4 years Do you want consulting provider notified?: Yes Primary care physician: Tushar Levi - Discharge Diagnosis(es) (1) Cerebellar stroke, acute Diagnosed on MRI, with "right Brachium Pontis and right Cerebellar acute vascular insult". Current Visit: Yes Status: Acute Priority: High (2) Binocular vision disorder with diplopia Current Visit: Yes Status: Acute Priority: High (3) Blurred vision, bilateral Current Visit: Yes Status: Acute Priority: High (4) Hypertension, essential, benign Current Visit: Yes Status: Chronic Priority: High (5) Atrial fibrillation Current Visit: Yes Status: Chronic Priority: Medium (6) Prostate cancer Current Visit: Yes Status: Chronic Priority: Medium Hospital Course: This 74-year-old male with past medical history significant for atrial fibrillation on Xeralto (sub-therapeutic dose per patient's choice), hypertension, prostate cancer on hormonal treatment and chronic blurred vision who resented to the emergency department this morning with Double/blurred vision and slurred speech since the morning of admission. Patient reported by the time he came to the emergency room his diplopia has resolved and his slurred his speech was also almost gone. Patient stated that he has not seen the dealmaker for 4 years and is not wearing his glasses. Patient reports that his double vision comes and goes and it comes it lasts for 5-10 minutes and then it resolves. Patient covers one eye and his double vision resolves. Patient was slightly dizzy with feeling of room spinning earlier in the morning but that has also been resolved by the time he arrived in the emergency department. With these complaints patient went to see Dr. Levi, his PCP, who again recommended to use full therapeutic dose of Xeralto and new prescription was sent to his pharmacy but because of the symptoms patient was sent directly to the emergency room for further evaluation and management. Patient has extensive evaluation in the emergency department and CAT scan of the head revealed atrophy and chronic changes, no acute process. CT-Angiogram does not reveal acute abnormality. Chest x-ray was done which showed diminished inspirations and possible mild cardiomegaly, no acute process. Patient was admitted to telemetry unit, neurology consult was obtained and Dr. Patricia's input appreciated. Patient was counseled regarding increasing the dose of Xeralto to 20MG daily and it took a lot of time to educate him about the pros of this medication which further outweighs the side effects. Patient finally agreed to take 20 mg from tomorrow morning. Patient's dizziness and slurred speech completely resolved but his double vision comes and goes but it comes is last few minutes, maybe 10 minutes at most and then it resolves. Patient also stated that he has not seen dealmaker for about 4 years and does not have glasses and his vision is very poor and blurry. Patient also reported that he does not sleep well because of his prostate issues and at times he is sleepy during the daytime and takes naps. Patient lives alone in his apartment. MRI will be done according to the recommendation of Dr. Patricia. Patient will be referred to ophthalmology evaluation and Dr. Tolliver was consulted for his double vision. This could be due to his lack of sleep during the nighttime and he is sleepy and weak tired during the daytime causing him to have intermittent double vision but will have him evaluated by ophthalmology either inpatient or as an outpatient so that patient can start getting his ophthalmologic care. Patient home medication were reviewed and will will be continued with the adjustment of Xeralto dose. Patient was requesting to be discharged and had MRI done on as an outpatient basis and Dr. Patricia recommended for discharging patient today, but because of his recurrent and reoccurring double vision and blurred vision it was counseled to stay in the hospital and have an MRI done as an inpatient and that he may be evaluated by the dealmaker while inpatient and patient agreed to stay. Today pt's vitals are stable and he is afebrile, his lungs are clear and heart irregularly irregular with variable heart sounds, no gross neuro deficits noted on exam. Pt's MRI Brain reported today as acute stroke and per Dr. Patricia pt. is ok for discharge home on current medication. Pt. was also seen by Dr. Tolliver today and recs for resuming glaucoma medication and will f/u in his office for further testing for diplopia and then pt. can go see his sister's Ophthalmoligist. Pt. agreed and he will be discharged home today with close f/u with Dr. Levi, Dr. Patricia and Dr. Tolliver. Assessment: As above. Health Concerns: Low salt and Low Cholesterol diet. Pertinent Studies: CT-Brain, CT-Angiogram, 2-D Echocardiogram, MRI Brain. Procedures: None. Patient Condition at Discharge: Fair Plan - Discharge Summary Discharge Rx Participant: No New Discharge Prescriptions: New Atorvastatin [Lipitor] 80 mg PO HS 30 Days #30 tab Melatonin 3 mg PO HS PRN 30 Days #30 tablet PRN Reason: Insomnia Rivaroxaban [Xarelto] 20 mg PO DAILY 30 Days #30 tab Aspirin 81 mg PO DAILY 30 Days #30 chewable Continue Benazepril/Hydrochlorothiazide [Benazepril-Hctz 20-12.5 mg Tab] 1 tab PO DAILY@0700 Discontinued Rivaroxaban [Xarelto] 15 mg PO DAILY@0700 Discharge Medication List Benazepril/Hydrochlorothiazide [Benazepril-Hctz 20-12.5 mg Tab] 1 tab PO DAILY@0700 09/19/19 [History] Aspirin 81 mg PO DAILY 30 Days #30 chewable 09/20/19 [Rx] Atorvastatin [Lipitor] 80 mg PO HS 30 Days #30 tab 09/20/19 [Rx] Melatonin 3 mg PO HS PRN 30 Days #30 tablet 09/20/19 [Rx] Rivaroxaban [Xarelto] 20 mg PO DAILY 30 Days #30 tab 09/20/19 [Rx] Follow up Appointment(s)/Referral(s): Patrick Canchola [Other] - 3 Weeks (Dr Zuluaga Office is closed. Please call to schedule appointment. Schedule it for after your appointment with Dr. Tolliver ) Tushar Levi MD [Primary Care Provider] - 09/25/19 8:45 am (Wednesday) Miguel Tolliver MD [STAFF PHYSICIAN] - 1 Week (please call office) Narendra Guillaume DO [STAFF PHYSICIAN] - 1 Week (Office is closed. Please call to schedule appointment) Patient Instructions/Handouts: Coronary Artery Disease (DC), A-fib (Atrial Fibrillation) (DC), Glaucoma (DC), Ischemic Stroke (DC)
[2019-09-20] MEDS: ATORVASTATIN 80 MG TAB PO SCH (18:48)
--- NOTE | 2019-09-20 19:21 | P.PN ---
Progress Note - Text Progress Note Date: 09/20/19 SUBJECTIVE/INTERVAL EVENTS: No acute overnight events. Patient denies any new symptoms. Denies dizziness, weakness, numbness or tingling. PHYSICAL EXAMINATION: VITAL SIGNS: T 97.6 HR 51 RR 16 BP 121/60 O2 sat 97% on RA GEN.: NAD, pleasant and cooperative HEENT: NCAT, sclera without icterus NECK: Supple, no carotid bruit SKIN AND EXTREMITIES: Warm to touch, no edema NEURO: MENTAL STATUS: Patient alert and oriented to self, place, time. Able to name the current president. Speech fluent, able to name and repeat, following all commands readily. No right and left disorientation, extinction to double simultaneous stimulation, finger agnosia, neglect. CRANIAL NERVES II THROUGH XII: II: Pupils are equal and reactive to light symmetrically. No afferent pupillary defect. Visual humphries are intact. III, IV, : No ptosis. Extraocular movements full. No nystagmus. V: Facial sensation intact from V1-3. VII. No clear facial asymmetry. VIII: Hearing intact to finger rub bilaterally. IX, X: Symmetric palate elevation. XI: Shoulder shrug intact. XII: Tongue midline without fasciculation or atrophy. MOTOR: Normal bulk/tone. No pronator drift or tremor. Strength is 5/5 throughout all 4 extremities. SENSORY: Intact to light touch, temperature, pinprick in all 4 extremities. Romberg is negative. REFLEXES: 2+ throughout. Toes are downgoing. COORDINATION: Finger to nose intact. No dysmetria. GAIT: Narrow-based and stable. Able to toe/heel walk. Some difficulty with tandem walking DIAGNOSTIC TESTING: LABORATORY: WBC 4.8 hemoglobin 14.2 platelets 326 PT 11.7 INR 1.1 sodium 138 potassium 4.5 chloride 102 bicarb 27 BUN 2421.06 glucose 106 AST 52 ALT 74 alk phos 99 troponin <0.012 Total cholesterol 282 LDL 199 HDL 42 triglycerides 204 TSH 2.20 A1C 5.6 IMAGING: MRI brain w/o contrast 09/20/2019: Small focus of increased signal on diffusion within R brachium pontis and periphery of cerebellum, likely acute stroke. TTE 09/19/19: A. fib. LV size is normal. RV size is severely enlarged. LA is severely dilated. RA is mildly enlarged. EF 55-60% CT head without contrast 09/19/2019: No acute intracranial hemorrhage or midline shift. There is mild to moderate diffuse age-related cerebral atrophy and mild chronic small vessel ischemic change noted. CTA head and neck with contrast 09/19/2019: No large vessel focal occlusion, hemodynamically significant stenosis, aneurysmal outpouchings or dissection seen. There is mild nonhemodynamically significant calcific and calcific atheromatous plaquing of the proximal external carotid artery and proximal left ica beginning at the carotid bulb. this is less than 50% change in luminal diameter. Cardiac monitoring: showing atrial fibrillation ASSESSMENT: 74 year-old man with PMHx of atrial fibrillation, prostate cancer, and HTN, who presents to [facility] for an episode of double vision along with a room spinning sensation. There is a concern for posterior circulation stroke this patient also with history of atrial fibrillation and prostate cancer: Patient has been on anticoagulation. MRI showing acute stroke in R brachium pontis and periphery of cerebellum, which corresponds to patient's symptoms. RECOMMENDATIONS: 1. Continue with Xarelto 2. Atorvastatin 80mg qhs 3. Discussed with patient about stroke prevention guidelines. Medication compliance, hypertension/diabetes control, lifestyle changes including no smoking, drinking in moderation, losing weight, exercising, eating healthier 4. Neurology will sign off at this time. Please feel free to contact Neurology again if with additional questions or concerns. 5. Patient needs to follow up with neurologist as outpatient with her 1-2 weeks of discharge
--- NOTE | 2019-09-20 23:40 | CONS ---
CONSULTATION OPHTHALMOLOGY CONSULTATION: DATE OF SERVICE: 09/20/2019. CHIEF COMPLAINT: Double vision. HISTORY OF PRESENT ILLNESS: Mr. Cardona is a 74-year-old male who noted dizziness, double vision and slurred speech yesterday. The symptoms began suddenly. The symptoms have improved since the time of onset. There have been no episodes of double vision since the initial episode that occurred yesterday. The patient was admitted to the hospital and found to have findings consistent with a stroke on MRI. He was also evaluated by a neurologist and will have neurology followup as an outpatient. REVIEW OF SYSTEMS: The patient denies chest pain, palpitations, headaches, dizziness, nausea, vomiting. MEDICAL HISTORY: Atrial fibrillation, angle closure glaucoma, hypertension, osteoarthritis, prostate cancer, diverticulitis, seasonal allergies. PAST SURGICAL HISTORY: Orthopedic surgery, prostate surgery, peripheral iridotomy laser in both eyes. SOCIAL HISTORY: Former smoker. FAMILY HISTORY: Significant for hypertension and liver disease in his father; congestive heart failure, diabetes and hypertension in his mother. HOME MEDICATIONS: Xarelto. ALLERGIES: NO KNOWN DRUG ALLERGIES. OPHTHALMOLOGIC EXAMINATION: Visual acuity is 20/50 at near with both eyes. There is no afferent pupillary defect. The pupils are equal, round and reactive to light accommodation. Extraocular movements are full. Confrontation in visual humphries is within normal limits. Anterior chamber exam reveals a peripheral iridotomy in the iris in the right and left iris that is patent. There is 2+ nuclear sclerotic cataract in both eyes. Posterior examination is essentially within normal limits. ASSESSMENT AND PLAN: 1. Ischemic stroke. The patient is under the care of Neurology and Cardiology. Fortunately there are no consistent ophthalmic symptoms. The diplopia has resolved and there are no extraocular movement abnormalities. There are no signs of strabismus at this time. The patient will require further evaluation as an outpatient, including visual field testing in the office. 2. Angle closure glaucoma, bilateral. The patient reports that he received treatment for this many years ago. However, he has not followed up with an financial administration officer. I recommend evaluation as an outpatient to further evaluate his glaucoma. I recommend outpatient evaluation within 14 days in the office, as above. Thank you for allowing me to participate in this patient's care. MMODL / IJN: [id number] /
== END 2019-09-20 18:58 | disposition home or self-care (01) | DRG 65 ==
LOC: EC 09:46 → 3SCARD 11:19
PROVIDERS: ADMIT Internal Medicine; ATTEND Internal Medicine
DX: I63.9 Cerebral infarction, unspecified (principal); I48.19 Other persistent atrial fibrillation; C61 Malignant neoplasm of prostate; E78.5 Hyperlipidemia, unspecified; H40.20X0 Unspecified primary angle-closure glaucoma, stage unspecified; I10 Essential (primary) hypertension; Z79.01 Long term (current) use of anticoagulants; Z79.890 Hormone replacement therapy; Z82.49 Family history of ischemic heart disease and other diseases of the circulatory system; Z83.3 Family history of diabetes mellitus; Z87.891 Personal history of nicotine dependence; H53.2 Diplopia; R47.81 Slurred speech
CPT/HCPCS: 36415; 70450; 70496; 70498; 70551; 71046; 80048; 80053; 80061; 83036; 84443; 84484; 85025; 85610; 85730; 93306; 99285

== ENCOUNTER → 2019-10-23 | Outpatient (CLI) | payer MEDICARE, BC ==
[2019-10-23 17:57] LABS: African American GFR (CKD) 69.6 (60.0-200.0); Anion Gap 5.9 mmol/L (4.00-12.00); BUN/Creat Ratio 16.67 Ratio (12.00-20.00); Calcium 10.1 mg/dL (8.7-10.3); Carbon Dioxide 28.1 mmol/L (21.6-31.8); Non-African American GFR(CKD) 60.1 (60.0-200.0); Potassium 5.2 mmol/L (3.5-5.5)
[2019-10-24 13:52] LABS: APTT 70 Sec(s) (<43); APTT 1:1 Mix 62 Sec(s) (<43); DRVVT 1:1 Mix 105 Sec(s) (<44); DRVVT Confirmation Positive (Negative); Dilute Russell Viper Venom 148 Sec(s) (<44); Hexagonal Phase Neutralization Positive (Negative)
== END | disposition home or self-care (01) ==
LOC: LABWHC1 09:49
PROVIDERS: ATTEND Internal Medicine
DX: C61 Malignant neoplasm of prostate (principal); I10 Essential (primary) hypertension; D68.9 Coagulation defect, unspecified; R79.1 Abnormal coagulation profile
CPT/HCPCS: 36415; 80048; 83090; 84153; 85598; 85613; 85730; 85732

== ENCOUNTER → 2020-08-29 | Outpatient (CLI) | payer MEDICARE, BC ==
--- NOTE | 2020-08-29 20:45 | XR ---
EXAMINATION TYPE: XR shoulder complete RT DATE OF EXAM: 08/29/2020 COMPARISON: NONE HISTORY: Pain TECHNIQUE: Shoulder examined in 3 view FINDINGS: The humeral head articulates with the glenoid. The acromio-clavicular junction is normal. No acute fractures or dislocations are evident. A follow up study can be performed 7-10 days from acute trauma for continued pain. IMPRESSION: 1. Normal three-view right Shoulder
== END | disposition home or self-care (01) ==
LOC: RADXRMAIN 16:52
PROVIDERS: ATTEND Internal Medicine
DX: M25.511 Pain in right shoulder (principal)

== ENCOUNTER → 2024-05-26 | Outpatient (CLI) | payer MEDICARE, BC ==
--- NOTE | 2024-05-26 17:43 | CT ---
EXAMINATION TYPE: CT sinus wo con DATE OF EXAM: 05/26/2024 COMPARISON: None HISTORY: 78-year-old male J34.[address] DLP: 538.7 mGycm Automated exposure control for dose reduction was used. TECHNIQUE: Noncontrast axial views of the paranasal sinuses were obtained. Coronal and sagittal recon structions performed. FINDINGS: PARANASAL SINUSES: Scattered trace mucosal thickening throughout the bilateral ethmoid air cells. Frontal and sphenoid sinuses well pneumatized. Mild mucosal thickening along the floors of the maxillary sinuses along with a 2.3 cm mucosal retenti on cyst on the left. There is no air-fluid level. Reactive francie- osteogenesis is not seen. There is no destruction of the osseous hayes of the paranasal sinuses. THE NASAL CAVITY: The osteomeatal complexes are patent. There is an undulating nasal septum, rightward deviation superiorly and slight leftward deviation inf eriorly. The imaged brain and orbits are normal in appearance. Mastoid air cells and middle ear cavities are well pneumatized. Cerumen in right external auditory ca nal. Reformatted images confirm above findings. IMPRESSION: 1. 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 There is a 2.3 cm mucosal retention cyst also no ronnell along the floor of the left maxillary sinus. 2. Undulating nasal septum. 3. Cerumen right external auditory canal.
== END | disposition home or self-care (01) ==
LOC: RADCTMAIN 12:54
PROVIDERS: ATTEND Internal Medicine
DX: J34.1 Cyst and mucocele of nose and nasal sinus (principal); J32.0 Chronic maxillary sinusitis
CPT/HCPCS: 70486

== ENCOUNTER 2024-09-11 16:42 | Emergency (ER) | payer MEDICARE, BC ==
[2024-09-11 16:49] VITALS: TEMP 98
--- NOTE | 2024-09-11 17:27 | ED ---
Male Urogenital HPI - General Chief complaint: Urogenital Stated complaint: Urogenital issues Time Seen by Provider: 09/11/24 17:00 Source: patient, RN notes reviewed Mode of arrival: ambulatory Limitations: no limitations - History of Present Illness Initial comments: Quick note: This is a 79-year-old male with history of prostatectomy complaining of urinary retention and hematuria x 4 days. Patient states he began having some blood in his urine following a URI 1 week ago. Patient endorses similar transient hematuria with illness since his prostatectomy 4 years ago. States hematuria has since worsened and has even urinated only blood. Patient states he has been unable to urinate at all since 10 AM this morning with some pressure noted in his bladder before experiencing spontaneous relief. Patient endorses concern of a blood clot occluding his urethra. Endorses use of Xarelto but expresses concern that it is not properly thinning his blood. Patient states he has an upcoming appointment for a kidney scan at [facility] tomorrow. Patient denies fever, chills, dysuria, significant abdominal pain, back pain. MD Complaint: other (Urinary retention, hematuria) Onset/Timin -: days(s) Reports: urinary retention, blood in urine - Related Data Home Medications Medication Instructions Recorded Confirmed Benazepril/Hydrochlorothiazide 1 tab PO DAILY@0700 09/19/19 09/19/19 [Benazepril-Hctz 20-12.5 mg Tab] Previous Rx's Medication Instructions Recorded Aspirin 81 mg PO DAILY 30 Days #30 chewable 09/20/19 Atorvastatin [Lipitor] 80 mg PO HS 30 Days #30 tab 09/20/19 Melatonin 3 mg PO HS PRN 30 Days #30 tablet 09/20/19 Rivaroxaban [Xarelto] 20 mg PO DAILY 30 Days #30 tab 09/20/19 Allergies Allergy/AdvReac Type Severity Reaction Status Date / Time No Known Allergies Allergy Verified 09/11/24 16:45 Review of Systems ROS Statement: Those systems with pertinent positive or pertinent negative responses have been documented in the HPI. ROS Other: All systems not noted in ROS Statement are negative. Past Medical History Past Medical History: Atrial Fibrillation, Cancer, Eye Disorder, Hypertension, Osteoarthritis (OA) Additional Past Medical History / Comment(s): Prostate cancer with surgery/radiation/immunotherapy, pt believes he has incomplete emptying of his bladder, chronic low back pain, arthritis multiple joints, diverticular disease, closed angle glaucoma bilaterally, seasonal allergies, recent "cold". 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 Past Anesthesia/Blood Transfusion Reactions: Postoperative Nausea & Vomiting (PONV) Past Psychological History: No Psychological Hx Reported Smoking Status: Former smoker Past Alcohol Use History: Occasional Past Drug Use History: None Reported - Past Family History Father Family Medical History: Hypertension, Liver Disease Additional Family Medical History / Comment(s): Father had heart "issues" Mother Family Medical History: Congestive Heart Failure (CHF), Diabetes Mellitus, Hypertension Additional Family Medical History / Comment(s): Enlarged heart. General Exam - General Exam Comments Initial Comments: Visual Physical Exam Vital signs reviewed General: Well-appearing, nontoxic, no acute distress. Head: Normocephalic, atraumatic Eyes: PERRLA, EOMI ENT: Airway patent Chest: Nonlabored breathing Skin: No visual rash, normal skin tone Neuro: Alert and oriented 3 Musculoskeletal: No gross abnormalities Limitations: no limitations General appearance: alert, in no apparent distress Head exam: Present: atraumatic, normocephalic, normal inspection Eye exam: Present: normal appearance, PERRL, EOMI. Absent: scleral icterus, conjunctival injection, periorbital swelling ENT exam: Present: normal exam, mucous membranes moist Neck exam: Present: normal inspection. Absent: tenderness, meningismus, lymphadenopathy Respiratory exam: Present: normal lung sounds bilaterally. Absent: respiratory distress, wheezes, rales, rhonchi, stridor Cardiovascular Exam: Present: regular rate, normal rhythm, normal heart sounds. Absent: systolic murmur, diastolic murmur, rubs, gallop, clicks GI/Abdominal exam: Present: soft, distended, normal bowel sounds. Absent: tenderness, guarding, rebound, rigid Extremities exam: Present: normal inspection, full ROM, normal capillary refill. Absent: tenderness, pedal edema, joint swelling, calf tenderness Back exam: Present: normal inspection Neurological exam: Present: alert, oriented X3, CN II-XII intact Psychiatric exam: Present: normal affect, normal mood Skin exam: Present: warm, dry, intact, normal color. Absent: rash Course Vital Signs 09/11/24 09/11/24 16:45 22:55 Temperature 98 F Pulse Rate 70 64 Respiratory 18 16 Rate Blood Pressure 143/78 145/69 O2 Sat by Pulse 97 98 Oximetry Medical Decision Making - Medical Decision Making Was pt. sent in by a medical professional or institution (, NADINE, SERVICE ADMINISTRATOR, urgent care, hospital, or [facility]...) When possible be specific @ -No Did you speak to anyone other than the patient for history (EMS, parent, family, police, friend...)? What history was obtained from this source @ -No Did you review nursing and triage notes (agree or disagree)? Why? @ -I reviewed and agree with nursing and triage notes Were old charts reviewed (outside hosp., previous admission, EMS record, old EKG, old radiological studies, urgent care reports/EKG's, [facility] records)? Report findings @ -No old charts were reviewed Differential Diagnosis (chest pain, altered mental status, abdominal pain women, abdominal pain men, vaginal bleeding, weakness, fever, dyspnea, syncope, headache, dizziness, GI bleed, back pain, seizure, CVA, palpatations, mental health, musculoskeletal)? @ -Differential Abdominal Pain Men: Appendicitis, cholecystitis, diverticulosis, ischemic bowel, pancreatitis, hepatitis, UTI, gastroenteritis, AAA, incarcerated hernia, bowel obstruction, constipation, inflammatory bowel, hepatitis, peptic ulcer disease, splenic infarction, perforated viscus, testicular torsion, this is not meant to be an all-inclusive list EKG interpreted by me (3pts min.). @ -Not done X-rays interpreted by me (1pt min.). @ -None done CT interpreted by me (1pt min.). @ -None done U/S interpreted by me (1pt. min.). @ -Bladder scan showed about 200 mL of fluid in urine. What testing was considered but not performed or refused? (CT, X-rays, U/S, labs)? Why? @ -None What meds were considered but not given or refused? Why? @ -None Did you discuss the management of the patient with other professionals (professionals i.e. NADINE Carlson, SERVICE ADMINISTRATOR, lab, RT, psych nurse, social media campaign manager, health safety instructor, teacher, alumni relations officer, transplant case manager)? Give summary @ -No Was smoking cessation discussed for >3mins.? @ -No Was critical care preformed (if so, how long)? @ -No Were there social determinants of health that impacted care today? How? (Homelessness, low income, unemployed, alcoholism, drug addiction, transportation, low edu. Level, literacy, decrease access to med. care, assisted, rehab)? @ -No Was there de-escalation of care discussed even if they declined (Discuss DNR or withdrawal of care, Hospice)? DNR status @ -No What co-morbidities impacted this encounter? (DM, HTN, Smoking, COPD, CAD, Cancer, CVA, ARF, Chemo, Hep., AIDS, mental health diagnosis, sleep apnea, morbid obesity)? @ -History of prostatectomy, use of Xarelto Was patient admitted / discharged? Hospital course, mention meds given and route, prescriptions, significant lab abnormalities, going to OR and other pertinent info. @ -Discharged. Bladder scan shows 200 mL of fluid in bladder. RN started Morales catheter with sung blood noted draining into bag. Ongoing drainage from bladder continues to be almost completely blood. Blood work largely unremarkable. UA shows sung blood with some white blood cells and leukocytes. Due to lack of urinary symptoms will not treat for UTI at this time. After s ome discussion and time to think, patient agrees to be discharged with Morales catheter in place, to be removed by his urologist following evaluation. Undiagnosed new problem with uncertain prognosis? @ -No Drug Therapy requiring intensive monitoring for toxicity (Heparin, Nitro, Insulin, Cardizem)? @ -No Were any procedures done? @ -Morales catheter inserted by RN Diagnosis/symptom? @ -Gross hematuria with urinary retention Acute, or Chronic, or Acute on Chronic? @ -Acute Uncomplicated (without systemic symptoms) or Complicated (systemic symptoms)? @ -Complicated Side effects of treatment? @ -No Exacerbation, Progression, or Severe Exacerbation? @ -Exacerbation Poses a threat to life or bodily function? How? (Chest pain, [place], [place], pneumonia, PE, COPD, DKA, ARF, appy, cholecystitis, CVA, Diverticulitis, Homicidal, Suicidal, threat to staff... and all critical care pts) @ -No - Lab Data Result diagrams: 09/11/24 17:58 09/11/24 17:58 Lab Results 09/11/24 09/11/24 09/11/24 Range/Units 17:58 17:58 17:58 WBC 9.5 (3.8-10.6) k/uL RBC 4.45 (4.30-5.90) m/uL Hgb 13.7 (13.0-17.5) gm/dL Hct 41.1 (39.0-53.0) % MCV 92.5 (80.0-100.0) fL MCH 30.9 (25.0-35.0) pg MCHC 33.4 (31.0-37.0) g/dL RDW 12.8 (11.5-15.5) % Plt Count 378 (150-450) k/uL MPV 6.8 Neutrophils % 77 % Lymphocytes % 13 % Monocytes % 6 % Eosinophils % 2 % Basophils % 1 % Neutrophils # 7.3 (1.3-7.7) k/uL Lymphocytes # 1.2 (1.0-4.8) k/uL Monocytes # 0.6 (0-1.0) k/uL Eosinophils # 0.2 (0-0.7) k/uL Basophils # 0.1 (0-0.2) k/uL PT 12.9 H (10.0-12.5) sec INR 1.2 H (<1.2) APTT 34.2 H (22.0-30.0) sec Sodium 135 L (137-145) mmol/L Potassium 4.1 (3.5-5.1) mmol/L Chloride 102 (98-107) mmol/L Carbon Dioxide 25 (22-30) mmol/L Anion Gap 8 mmol/L BUN 25 H (9-20) mg/dL Creatinine 1.31 H (0.66-1.25) mg/dL Est GFR (CKD-EPI)AfAm 61 (>60 ml/min/1.73 sqM) Est GFR (CKD-EPI)NonAf 52 (>60 ml/min/1.73 sqM) Glucose 95 (74-99) mg/dL Calcium 9.0 (8.4-10.2) mg/dL Total Bilirubin 0.4 (0.2-1.3) mg/dL AST 40 (17-59) U/L ALT 42 (4-49) U/L Alkaline Phosphatase 87 (38-126) U/L Total Protein 7.1 (6.3-8.2) g/dL Albumin 3.9 (3.5-5.0) g/dL Urine Color Urine Appearance (Clear) Urine pH (5.0-8.0) Ur Specific Mulino (1.001-1.035) Urine Protein (Negative) Urine Glucose (UA) (Negative) Urine Ketones (Negative) Urine Blood (Negative) Urine Nitrite (Negative) Urine Bilirubin (Negative) Urine Urobilinogen (<2.0) mg/dL Ur Leukocyte Esterase (Negative) Urine RBC (0-5) /hpf Urine WBC (0-5) /hpf 09/11/24 Range/Units 21:00 WBC (3.8-10.6) k/uL RBC (4.30-5.90) m/uL Hgb (13.0-17.5) gm/dL Hct (39.0-53.0) % MCV (80.0-100.0) fL MCH (25.0-35.0) pg MCHC (31.0-37.0) g/dL RDW (11.5-15.5) % Plt Count (150-450) k/uL MPV Neutrophils % % Lymphocytes % % Monocytes % % Eosinophils % % Basophils % % Neutrophils # (1.3-7.7) k/uL Lymphocytes # (1.0-4.8) k/uL Monocytes # (0-1.0) k/uL Eosinophils # (0-0.7) k/uL Basophils # (0-0.2) k/uL PT (10.0-12.5) sec INR (<1.2) APTT (22.0-30.0) sec Sodium (137-145) mmol/L Potassium (3.5-5.1) mmol/L Chloride (98-107) mmol/L Carbon Dioxide (22-30) mmol/L Anion Gap mmol/L BUN (9-20) mg/dL Creatinine (0.66-1.25) mg/dL Est GFR (CKD-EPI)AfAm (>60 ml/min/1.73 sqM) Est GFR (CKD-EPI)NonAf (>60 ml/min/1.73 sqM) Glucose (74-99) mg/dL Calcium (8.4-10.2) mg/dL Total Bilirubin (0.2-1.3) mg/dL AST (17-59) U/L ALT (4-49) U/L Alkaline Phosphatase (38-126) U/L Total Protein (6.3-8.2) g/dL Albumin (3.5-5.0) g/dL Urine Color Red Urine Appearance Turbid (Clear) Urine pH 7.0 (5.0-8.0) Ur Specific Mulino >1.050 H (1.001-1.035) Urine Protein 2+ H (Negative) Urine Glucose (UA) Negative (Negative) Urine Ketones Trace H (Negative) Urine Blood Large H (Negative) Urine Nitrite Negative (Negative) Urine Bilirubin Negative (Negative) Urine Urobilinogen <2.0 (<2.0) mg/dL Ur Leukocyte Esterase Small H (Negative) Urine RBC >182 H (0-5) /hpf Urine WBC 56 H (0-5) /hpf Disposition Clinical Impression: Gross hematuria, Urinary obstruction Disposition: HOME SELF-CARE Condition: Good Instructions (If sedation given, give patient instructions): Hematuria (ED) Is patient prescribed a controlled substance at d/c from ED?: No Referrals: Shama Tan MD [Primary Care Provider] - 1-2 days Time of Disposition: 10:05
[2024-09-11 18:55] LABS: Basophils # (A) 0.1 k/uL (0-0.2); Basophils % (A) 1 %; Eosinophils # (A) 0.2 k/uL (0-0.7); Eosinophils % (A) 2 %; HCT 41.1 % (39.0-53.0); HGB 13.7 gm/dL (13.0-17.5); Lymphocytes # (A) 1.2 k/uL (1.0-4.8); Lymphocytes % (A) 13 %; MCH 30.9 pg (25.0-35.0); MCHC 33.4 g/dL (31.0-37.0); MCV 92.5 fL (80.0-100.0); Mean Platelet Volume 6.8; Monocytes # (A) 0.6 k/uL (0-1.0); Monocytes % (A) 6 %; Neutrophils # (A) 7.3 k/uL (1.3-7.7); Neutrophils % (A) 77 %; Platelet Count 378 k/uL (150-450); RBC 4.45 m/uL (4.30-5.90); RDW 12.8 % (11.5-15.5); WBC 9.5 k/uL (3.8-10.6)
[2024-09-11 19:02] LABS: INR 1.2 (<1.2); Partial Thromboplastin Time 34.2 sec (22.0-30.0); Prothrombin Time 12.9 sec (10.0-12.5)
[2024-09-11 19:08] LABS: ALT 42 U/L (4-49); AST 40 U/L (17-59); African American GFR (CKD) 61 (>60 ml/min/1.73 sqM); Albumin 3.9 g/dL (3.5-5.0); Alkaline Phosphatase 87 U/L (38-126); Anion Gap 8 mmol/L; Blood Urea Nitrogen 25 mg/dL (9-20); Carbon Dioxide 25 mmol/L (22-30); Chloride 102 mmol/L (98-107); Glucose 95 mg/dL (74-99); Non-African American GFR(CKD) 52 (>60 ml/min/1.73 sqM); Potassium 4.1 mmol/L (3.5-5.1); Sodium 135 mmol/L (137-145); Total Bilirubin 0.4 mg/dL (0.2-1.3); Total Protein 7.1 g/dL (6.3-8.2)
[2024-09-11 21:18] LABS: Appearance,Urine Turbid (Clear); Bilirubin,Urine Negative (Negative); Blood,Urine Large (Negative); Color,Urine Red; Glucose,Urine (UA) Negative (Negative); Ketones,Urine Trace (Negative); Leukocyte Esterase,Urine Small (Negative); Nitrite,Urine Negative (Negative); Protein,Urine 2+ (Negative); RBC,Urine >182 /hpf (0-5); Specific Gravity,Urine >1.050 (1.001-1.035); Urobilinogen,Urine <2.0 mg/dL (<2.0); WBC,Urine 56 /hpf (0-5)
[2024-09-11 22:57] VITALS: BP 145/69; PULSE 64; RESP 16
== END 2024-09-11 22:55 | disposition home or self-care (01) ==
LOC: EC 16:42
CPT/HCPCS: 36415; 51798; 80053; 81001; 85025; 85610; 85730; 87086; 99283

== ENCOUNTER 2024-09-12 08:50 | Emergency (ER) | payer MEDICARE, BC ==
[2024-09-12 08:55] VITALS: RESP 18
--- NOTE | 2024-09-12 09:36 | ED ---
General Adult HPI - General Chief complaint: Urogenital Stated complaint: cath flush Time Seen by Provider: 09/12/24 08:54 Source: patient, RN notes reviewed Mode of arrival: ambulatory Limitations: no limitations - History of Present Illness Initial comments: 79-year-old male presents emergency department complaint of Morales catheter not working. Patient states that he had a Morales catheter because of urinary retention and hematuria. He is due for a CAT scan today. Patient states that his catheter was not draining this morning because some pressure. Patient has a fever chills patient offers no other complaints. Patient has a history of prostate cancer with radiation and chemotherapy - Related Data Home Medications Medication Instructions Recorded Confirmed Benazepril/Hydrochlorothiazide 1 tab PO DAILY@0700 09/19/19 09/19/19 [Benazepril-Hctz 20-12.5 mg Tab] Previous Rx's Medication Instructions Recorded Aspirin 81 mg PO DAILY 30 Days #30 chewable 09/20/19 Atorvastatin [Lipitor] 80 mg PO HS 30 Days #30 tab 09/20/19 Melatonin 3 mg PO HS PRN 30 Days #30 tablet 09/20/19 Rivaroxaban [Xarelto] 20 mg PO DAILY 30 Days #30 tab 09/20/19 Allergies Allergy/AdvReac Type Severity Reaction Status Date / Time No Known Allergies Allergy Verified 09/12/24 08:55 Review of Systems ROS Statement: Those systems with pertinent positive or pertinent negative responses have been documented in the HPI. ROS Other: All systems not noted in ROS Statement are negative. Past Medical History Past Medical History: Atrial Fibrillation, Cancer, Eye Disorder, Hypertension, Osteoarthritis (OA) Additional Past Medical History / Comment(s): Prostate cancer with surgery/radiation/immunotherapy, pt believes he has incomplete emptying of his bladder, chronic low back pain, arthritis multiple joints, diverticular disease, closed angle glaucoma bilaterally, seasonal allergies, recent "cold". 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 Past Anesthesia/Blood Transfusion Reactions: Postoperative Nausea & Vomiting (PONV) Past Psychological History: No Psychological Hx Reported Smoking Status: Former smoker Past Alcohol Use History: Occasional Past Drug Use History: None Reported - Past Family History Father Family Medical History: Hypertension, Liver Disease Additional Family Medical History / Comment(s): Father had heart "issues" Mother Family Medical History: Congestive Heart Failure (CHF), Diabetes Mellitus, Hypertension Additional Family Medical History / Comment(s): Enlarged heart. General Exam Limitations: no limitations General appearance: alert, in no apparent distress Head exam: Present: atraumatic, normocephalic, normal inspection Eye exam: Present: normal appearance, PERRL, EOMI. Absent: scleral icterus, conjunctival injection, periorbital swelling ENT exam: Present: normal exam, mucous membranes moist Neck exam: Present: normal inspection, full ROM. Absent: tenderness, meningismus, lymphadenopathy Respiratory exam: Present: normal lung sounds bilaterally. Absent: respiratory distress, wheezes, rales, rhonchi, stridor Cardiovascular Exam: Present: regular rate, normal rhythm, normal heart sounds. Absent: systolic murmur, diastolic murmur, rubs, gallop, clicks GI/Abdominal exam: Present: soft, normal bowel sounds. Absent: distended, tenderness, guarding, rebound, rigid Course Vital Signs 09/12/24 09/12/24 08:52 09:57 Temperature 98.0 F 98.1 F Pulse Rate 75 72 Respiratory 18 18 Rate Blood Pressure 153/76 140/72 O2 Sat by Pulse 96 97 Oximetry Medical Decision Making - Medical Decision Making Was pt. sent in by a medical professional or institution (, PA, SEASONAL CUSTOMER SERVICE ASSOCIATE, urgent ca re, hospital, or intermediate...) When possible be specific @ -No Did you speak to anyone other than the patient for history (EMS, parent, family, police, friend...)? What history was obtained from this source @ -No Did you review nursing and triage notes (agree or disagree)? Why? @ -I reviewed and agree with nursing and triage notes Were old charts reviewed (outside hosp., previous admission, EMS record, old EKG, old radiological studies, urgent care reports/EKG's, intermediate records)? Report findings @ -No old charts were reviewed Differential Diagnosis (chest pain, altered mental status, abdominal pain women, abdominal pain men, vaginal bleeding, weakness, fever, dyspnea, syncope, headache, dizziness, GI bleed, back pain, seizure, CVA, palpatations, mental health, musculoskeletal)? @ -Hematuria, urinary retention, Morales catheter complication EKG interpreted by me (3pts min.). @ -None X-rays interpreted by me (1pt min.). @ -None done CT interpreted by me (1pt min.). @ -None done U/S interpreted by me (1pt. min.). @ -None done What testing was considered but not performed or refused? (CT, X-rays, U/S, labs)? Why? @ -None What meds were considered but not given or refused? Why? @ -None Did you discuss the management of the patient with other professionals (professionals i.e. DrEmily, PA, SEASONAL CUSTOMER SERVICE ASSOCIATE, lab, RT, psych nurse, social welfare research worker, digital media sales consultant, teacher, chief accounting officer, case making machine operator)? Give summary @ -No Was smoking cessation discussed for >3mins.? @ -No Was critical care preformed (if so, how long)? @ -No Were there social determinants of health that impacted care today? How? (Home lessness, low income, unemployed, alcoholism, drug addiction, transportation, low edu. Level, literacy, decrease access to med. care, assisted, rehab)? @ -No Was there de-escalation of care discussed even if they declined (Discuss DNR or withdrawal of care, Hospice)? DNR status @ -No What co-morbidities impacted this encounter? (DM, HTN, Smoking, COPD, CAD, Cancer, CVA, ARF, Chemo, Hep., AIDS, mental health diagnosis, sleep apnea, morbid obesity)? @ -None Was patient admitted / discharged? Hospital course, mention meds given and route, prescriptions, significant lab abnormalities, going to OR and other pertinent info. @ -Charge Morales catheter was irrigated patient is following well patient has no other complaints. Patient states he will go to this CAT scan now. Undiagnosed new problem with uncertain prognosis? @ -No Drug Therapy requiring intensive monitoring for toxicity (Heparin, Nitro, Insulin, Cardizem)? @ -No Were any procedures done? @ -No Diagnosis/symptom? @ -urinary retention, hematuria Acute, or Chronic, or Acute on Chronic? @ -Acute Uncomplicated (without systemic symptoms) or Complicated (systemic symptoms)? @ -Uncomplicated Side effects of treatment? @ -No Exacerbation, Progression, or Severe Exacerbation? @ -No Poses a threat to life or bodily function? How? (Chest pain, [place], [place], pneumonia, PE, COPD, DKA, ARF, appy, cholecystitis, CVA, Diverticulitis, Homicidal, Maureen cidal, threat to staff... and all critical care pts) @ -No Disposition Clinical Impression: Gross hematuria, Urinary retention Disposition: HOME SELF-CARE Condition: Stable Additional Instructions: Please return to the Emergency Department if symptoms worsen or any other concerns. Is patient prescribed a controlled substance at d/c from ED?: No Referrals: Shama Tan MD [Primary Care Provider] - 1-2 days Time of Disposition: 09:35
[2024-09-12 09:58] VITALS: BP 140/72; PULSE 72; TEMP 98.1
== END 2024-09-12 12:30 | disposition home or self-care (01) ==
LOC: EC 08:50
CPT/HCPCS: 99283

== ENCOUNTER → 2024-09-12 | Outpatient (CLI) | payer MEDICARE, BC ==
--- NOTE | 2024-09-12 15:20 | CT ---
EXAMINATION TYPE: CT urogram wo/w con CT DLP: 1664.60 mGycm, Automated exposure control for dose reduction was used. DATE OF EXAM: 09/12/2024 1:03 PM COMPARISON: CT abdomen pelvis 02/23/2018 CLINICAL INDICATION:Male, 79 years old with history of R31.0 GROSS HEMATURIA; PHH, Gross hematuria, u rinating blood clots. Hx prostate ca Recent placement of cath. TECHNIQUE: Urogram of the abdomen and pelvis was performed before and after the administration of 100 cc of IV c ontrast Isovue 300 contrast. Delayed imaging was performed. Coronal and sagittal reformats were perfo rmed. One or more CT dose reduction strategies were utilized during this examination. 2D and 3D recon structions are performed to assist visualization of the urinary tract on a separate workstation. FINDINGS: GENITOURINARY: RIGHT KIDNEY AND URETER: Stable posterior 9 mm right mid kidney cortical calcification. Similar corti dana atrophy within the posterior aspect of the superior pole. 1.3 cm nonenhancing cyst within the upp er pole cortex. No hydronephrosis or hydroureter. No enhancing renal mass. No urothelial lesions: no filling defect, dilation, stricture or wall thickening. LEFT KIDNEY AND URETER: No calculi. No hydronephrosis or hydroureter. No renal mass or other lesions. No urothelial lesions: no filling defect, dilation, stricture or wall thickening. URINARY BLADDER: Decompressed with Morales catheter in place. Hyperdense material identified layering w ithin the urinary bladder on noncontrast imaging. Does not enhance. Nondependent gas within urinary b ladder likely from catheter placement. REPRODUCTIVE: Prostate gland is surgically absent.. ABDOMEN LIVER: Unremarkable. GALLBLADDER AND BILE DUCTS: Unremarkable PANCREAS: Unremarkable. SPLEEN: Peripheral calcification noted laterally. ADRENAL GLANDS: Unremarkable. STOMACH AND BOWEL: Scattered colonic diverticulosis without evidence for acute diverticulitis. No foc al bowel wall thickening or surrounding inflammatory changes. The appendix is within normal limits. N o evidence of bowel obstruction. PERITONEUM: No evidence of pneumoperitoneum. No adenopathy. Trace free fluid in the pelvis anterior to the rectum. VASCULATURE: Atherosclerotic calcifications are present throughout the abdominal aorta and its branc hes. No abdominal aortic aneurysm. MUSCULOSKELETAL: No acute osseous abnormalities. Multilevel degenerative disc disease. SOFT TISSUE/ABDOMINAL WALL: Unremarkable. LOWER CHEST: The visualized lung bases demonstrate dependent subpleural atelectasis. Small artery dana cifications. Small aortic valvular calcifications. IMPRESSION: 1. Decompressed bladder with hyperdense material layering on the noncontrast imaging. No enhancement identified after contrast administration. Favored to represent blood products. No other definitive l esion identified within the urinary bladder within limitation of surrounding blood products. Consider direct visualization for further evaluation. Blood products may be from posttraumatic Morales catheter placement. 2. No evidence of enhancing renal neoplasm. Stable right renal 9 mm nonobstructive calcification. St able remote injury to the superior pole of the right kidney. 3. Postsurgical changes from prostatectomy. 4. Colonic diverticulosis without evidence for acute diverticulitis. [facility], , 09/12/2024 3:18 PM
== END | disposition home or self-care (01) ==
LOC: RADCTMAIN 10:05
PROVIDERS: ATTEND Internal Medicine
CPT/HCPCS: 36415; 74178; 74400

== ENCOUNTER → 2024-10-09 | Outpatient (CLI) | payer MEDICARE, BC | END | disposition home or self-care (01) | LOC: LABWHC1 09:54 | PROVIDERS: ATTEND Urology | DX: C61 Malignant neoplasm of prostate (principal) | CPT/HCPCS: 36415; 84153 ==

== ENCOUNTER 2024-11-28 14:00 | Emergency (ER) | payer BC, MEDICARE ==
[2024-11-28 14:21] VITALS: RESP 18
--- NOTE | 2024-11-28 14:41 | ED ---
General Adult HPI - General Chief complaint: Urogenital Stated complaint: Unable to urinate Time Seen by Provider: 11/28/24 14:15 Source: patient, RN notes reviewed, old records reviewed Mode of arrival: ambulatory Limitations: no limitations - History of Present Illness Initial comments: This is 79-year-old male who presents to the emergency department stating that he has had prostate cancer in the past and has had urinary retention as well in the past. Patient states he was told not to wait so long because last time he waited too long and is urologist told him to get in his 70s he stopped p.m. Patient states that 8:00 this morning after drinking a bunch of fluids he was unable to urinate so he decided to come to the emergency department. Patient states he often has a little bit of hematuria and that occurred again today and he thinks that is what clots him off. Patient states he is on a blood thinner for A-fib and he states that he had radiation which affected his bladder and that his bladder bleeds on a regular basis sometimes worse than other times. Patient denies any abdominal pain at this time he does have the urge to urinate but is unable to. Denies any back pain. Patient denies any fever. - Related Data Home Medications Medication Instructions Recorded Confirmed Benazepril/Hydrochlorothiazide 1 tab PO DAILY@0700 09/19/19 09/19/19 [Benazepril-Hctz 20-12.5 mg Tab] Previous Rx's Medication Instructions Recorded Aspirin 81 mg PO DAILY 30 Days #30 chewable 09/20/19 Atorvastatin [Lipitor] 80 mg PO HS 30 Days #30 tab 09/20/19 Melatonin 3 mg PO HS PRN 30 Days #30 tablet 09/20/19 Rivaroxaban [Xarelto] 20 mg PO DAILY 30 Days #30 tab 09/20/19 Sulfamethox-Tmp 800-160Mg [Bactrim 1 each PO Q12HR #14 tab 11/28/24 DS 800-160 mg] Allergies Allergy/AdvReac Type Severity Reaction Status Date / Time No Known Allergies Allergy Verified 11/28/24 14:14 Review of Systems ROS Statement: Those systems with pertinent positive or pertinent negative responses have been documented in the HPI. ROS Other: All systems not noted in ROS Statement are negative. Past Medical History Past Medical History: Atrial Fibrillation, Cancer, Eye Disorder, Hypertension, Osteoarthritis (OA) Additional Past Medical History / Comment(s): Prostate cancer with surgery/radiation/immunotherapy, pt believes he has incomplete emptying of his bladder, chronic low back pain, arthritis multiple joints, diverticular disease, closed angle glaucoma bilaterally, seasonal allergies, recent "cold". 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 Past Anesthesia/Blood Transfusion Reactions: Postoperative Nausea & Vomiting (PONV) Past Psychological History: No Psychological Hx Reported Smoking Status: Former smoker Past Alcohol Use History: Occasional Past Drug Use History: None Reported - Past Family History Father Family Medical History: Hypertension, Liver Disease Additional Family Medical History / Comment(s): Father had heart "issues" Mother Family Medical History: Congestive Heart Failure (CHF), Diabetes Mellitus, Hypertension Additional Family Medical History / Comment(s): Enlarged heart. General Exam - General Exam Comments Initial Comments: GENERAL: Patient is well-developed and well-nourished. Patient is nontoxic and well- hydrated and is in mild distress. ENT: Neck is soft and supple. No significant lymphadenopathy is noted. Oropharynx is clear. Moist mucous membranes. Neck has full range of motion without eliciting any pain. EYES: The sclera were anicteric and conjunctiva were pink and moist. Extraocular movements were intact and pupils were equal round and reactive to light. Eyelids were unremarkable. PULMONARY: Unlabored respirations. Good breath sounds bilaterally. No audible rales rhonchi or wheezing was noted. CARDIOVASCULAR: There is a regular rate and rhythm without any murmurs gallops or rubs. ABDOMEN: Soft and nontender with normal bowel sounds. Patient has no suprapubic tenderness. SKIN: Skin is clear with no lesions or rashes and otherwise unremarkable. NEUROLOGIC: Patient is alert and oriented x 3 cranial nerves II through XII are gross intact motor and sensory are also intact MUSCULOSKELETAL: Normal extremities with adequate strength and full range of motion. No lower extremity swelling or edema. No calf tenderness. LYMPHATICS: No significant lymphadenopathy is noted PSYCHIATRIC: Normal psychiatric evaluation. Limitations: no limitations Course Vital Signs 11/28/24 14:15 Temperature 98.3 F Pulse Rate 58 L Respiratory 18 Rate Blood Pressure 137/57 O2 Sat by Pulse 99 Oximetry Medical Decision Making - Medical Decision Making Was pt. sent in by a medical professional or institution (NADINE Carlson, ENVIRONMENTAL CONSTRUCTION ENGINEER, urgent care, hospital, or group home...) When possible be specific @ -No Did you speak to anyone other than the patient for history (EMS, parent, family, police, friend...)? What history was obtained from this source @ -No Did you review nursing and triage notes (agree or disagree)? Why? @ -I reviewed and agree with nursing and triage notes Were old charts reviewed (outside hosp., previous admission, EMS record, old EKG, old radiological studies, urgent care reports/EKG's, group home records)? Report findings @ -No old charts were reviewed Differential Diagnosis? @ -Urinary retention, urinary tract infection, hematuria, this is not all- inclusive list EKG interpreted by me (3pts min.). @ -As above X-rays interpreted by me (1pt min.). @ -None done CT interpreted by me (1pt min.). @ -None done U/S interpreted by me (1pt. min.). @ -None done What testing was considered but not performed or refused? (CT, X-rays, U/S, labs)? Why? @ -None What meds were considered but not given or refused? Why? @ -None Did you discuss the management of the patient with other professionals (professionals i.e. NADINE Carlson, ENVIRONMENTAL CONSTRUCTION ENGINEER, lab, RT, psych nurse, social sciences instructor, environmental lawyer, teacher, medical officer psychiatry, immigration case manager)? Give summary @ -No Was smoking cessation discussed for >3mins.? @ -No Was critical care preformed (if so, how long)? @ -No Were there social determinants of health that impacted care today? How? (Homelessness, low income, unemployed, alcoholism, drug addiction, transportation, low edu. Level, literacy, decrease access to med. care, prison, rehab)? @ -No Was there de-escalation of care discussed even if they declined (Discuss DNR or withdrawal of care, Hospice)? DNR status @ -No What co-morbidities impacted this encounter? (DM, HTN, Smoking, COPD, CAD, Cancer, CVA, ARF, Chemo, Hep., AIDS, mental health diagnosis, sleep apnea, morbid obesity)? @ -None Was patient admitted / discharged? Hospital course, mention meds given and route, prescriptions, significant lab abnormalities, going to OR and other pertinent info. @ -Patient needed to have a catheter placed because he is unable to urinate. Patient's urine showed white cells and red cells so it was difficult to ascertain whether there was an infection patient did get a gram Rocephin in emergency department will be sent home on antibiotics awaiting urine culture Undiagnosed new problem with uncertain prognosis? @ -No Drug Therapy requiring intensive monitoring for toxicity (Heparin, Nitro, Insulin, Cardizem)? @ -No Were any procedures done? @ -No Diagnosis/symptom? @ -Urinary retention Acute, or Chronic, or Acute on Chronic? @ -Acute Uncomplicated (without systemic symptoms) or Complicated (systemic symptoms)? @ -Uncomplicated Side effects of treatment? @ -No Exacerbation, Progression, or Severe Exacerbation? @ -No Poses a threat to life or bodily function? How? (Chest pain, USA, CT, pneumonia, PE, COPD, DKA, ARF, appy, cholecystitis, CVA, Diverticulitis, Homicidal, Suicidal, threat to staff... and all critical care pts) @ -No Diagnosis/symptom? @ -Urinary tract infection Acute, or Chronic, or Acute on Chronic? @ -Acute Uncomplicated (without systemic symptoms) or Complicated (systemic symptoms)? @ -Uncomplicated Side effects of treatment? @ -None Exacerbation, Progression, or Severe Exacerbation] @ -No Poses a threat to life or bodily function? @ -No - Lab Data Lab Results 11/28/24 Range/Units 14:42 Urine Color Red Urine Appearance Bloody (Clear) Urine RBC >182 H (0-5) /hpf Urine WBC >182 H (0-5) /hpf Disposition Clinical Impression: Urinary retention, Urinary tract infection Disposition: HOME SELF-CARE Condition: Good Instructions (If sedation given, give patient instructions): Urinary Retention in Men (ED), Urinary Tract Infection in Men (ED) Prescriptions: Sulfamethox-Tmp 800-160Mg [Bactrim DS 800-160 mg] 1 each PO Q12HR #14 tab Is patient prescribed a controlled substance at d/c from ED?: No Referrals: Shama Tan MD [Primary Care Provider] - 1-2 days Time of Disposition: 15:30
[2024-11-28 15:04] LABS: RBC,Urine >182 /hpf (0-5); WBC,Urine >182 /hpf (0-5)
[2024-11-28 15:05] LABS: Appearance,Urine Bloody (Clear); Color,Urine Red
[2024-11-28] MEDS: cefTRIAXone 1,000 MG VIAL (IM USE) IM STA (16:05)
[2024-11-28 16:14] VITALS: BP 135/76; PULSE 61; TEMP 98.2
== END 2024-11-28 16:15 | disposition home or self-care (01) ==
LOC: EC 14:00
DX: N39.0 Urinary tract infection, site not specified (principal); R33.9 Retention of urine, unspecified; Z87.891 Personal history of nicotine dependence; Z85.46 Personal history of malignant neoplasm of prostate
CPT/HCPCS: 81001; 87086; 99284; 96372; 51702; J0696

== ENCOUNTER 2025-03-09 07:51 | Day surgery (SDC) | payer MEDICARE, OTHER ==
[2025-03-08 09:47] VITALS: BMI 28.2
[2025-03-09] MEDS: IV FLUID CONTINUATION 1,000 ML IV ONE ×3 (08:09→09:23)
[2025-03-09] MEDS: LACTATED RINGERS 1,000 ML IV SCH (08:14)
[2025-03-09 08:19] VITALS: RESP 16; TEMP 97.2
[2025-03-09] MEDS ORDERED: PROPOFOL 10 MG/ML 20 ML VIAL IV ONE (09:03)
--- NOTE | 2025-03-09 09:25 | P.PCN ---
Date of Procedure: 03/09/25 Procedure(s) Performed: Brief history: Patient is a pleasant 79-year-old white male scheduled for an elective upper endoscopy as well as colonoscopy as a part of evaluation of GERD and screening for colon cancer Procedure performed: Esophagogastroduodenoscopy with biopsy Colonoscopy with biopsy Preoperative diagnosis: GERD Screening for colon cancer Anesthesia: MAC Procedure: After informed consent was obtained from the patient was brought into the endoscopy unit and IV sedation was administered by anesthesia under continuous monitoring. Initially upper endoscopy was done. The Olympus GF 160 video endoscope was inserted inserted into the mouth and esophagus intubated without any difficulty and was gradually advanced into the stomach and duodenum and carefully examined. The bulb and second part of the duodenum appeared normal. The scope was then withdrawn into the stomach adequately insufflated with air and upon careful examination the antrum and mild gastritis and biopsies were done for this area. Mucosa of the d body, cardia and fundus appeared normal. The scope was then withdrawn into the esophagus. Small hiatal hernia noted. The GE junction was located at 40 cm to the incisors. It appeared regular with no erythema erosions or ulcerations. Rest of the esophagus appeared normal. Patient tolerated the procedure well. At this time the patient continued to remain sedation. Initial digital rectal examination was normal. Olympus CF 160 video colonoscope was then inserted into the rectum and gradually advanced to the cecum without any difficulty. Careful examination was performed as the scope was gradually being withdrawn. The prep was excellent. The cecum was normal. In the asc colon 4 mm polyp was seen and was removed bu cold biopsy/ Rest of the ascending colon, transverse colon, descending colon, sigmoid colon and rectum appeared normal. Scattered sigmoid diverticulosis. Retroflexion was performed in the rectum and no lesions were noted. Patient tolerated the procedure well. Impression: 1. Upper endoscopy revealed mild antral gastritis and small hiatal hernia 2. Colonoscopy revealed 4 mmm asc colon polyp s/p biopsy and scattered sigmoid diverticulosis Recommendations: Findings of this examination were discussed with the patient as well as family. He was advised to follow with the biopsy results. Continue with a high-fiber diet and fiber supplements daily.
[2025-03-09 09:43] VITALS: BP 169/88; PULSE 53
== END 2025-03-09 10:33 | disposition home or self-care (01) ==
LOC: ORWHC2ENDO 07:51
PROVIDERS: ATTEND Internal Medicine Gastroenterology
DX: Z12.11 Encounter for screening for malignant neoplasm of colon (principal); K31.9 Disease of stomach and duodenum, unspecified; D12.2 Benign neoplasm of ascending colon; K21.9 Gastro-esophageal reflux disease without esophagitis; K44.9 Diaphragmatic hernia without obstruction or gangrene; K29.70 Gastritis, unspecified, without bleeding; K57.30 Diverticulosis of large intestine without perforation or abscess without bleeding
CPT/HCPCS: 45380; 43239; J2704; 88305